=== PATIENT | female | born 2005 | race Caucasian/White ===

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

== ENCOUNTER 2024-02-12 08:59 | Outpatient (CLI) | payer MEDICAID, SELFPAY ==
--- NOTE | 2024-02-12 08:45 | RT.EKG_ITS ---
APPROVED REPORT Exam: Resting ECG Reason for Exam: Medication management/Use of stimulant medication Patient Location: O HR:69 bpm ECG Measurements Heart Rate 69 AXIS PA 136 P 21 QRSd 100 QRS 67 QT 389 T 28 QTc 417 Conclusion Sinus rhythm...normal P axis, V-rate 50- 99 Normal Electrocardiogram
== END 2024-02-12 09:00 | disposition home or self-care (01) ==
LOC: DI.KIM 09:00
PROVIDERS: PCP Nurse Practitioner Family; Visit Provider Nurse Practitioner Family
DX: Z79.899 Other long term (current) drug therapy (principal)
CPT/HCPCS: 93010

== ENCOUNTER 2024-03-25 10:54 | Outpatient (CLI) | payer MEDICAID, SELFPAY ==
[2024-03-25 11:04] LABS: HCT 44.1 % (36.0-46.0); HGB 14.3 g/dL (11.2-15.7); RBC 5.03 10^6/uL (3.93-5.22); WBC 7.08 10^3/uL (4.4-10.8)
[2024-03-25 11:05] LABS: MCH 28.4 pg (27.0-33.0); MCHC 32.4 % (32.0-36.0); MCV 88 fL (80-95); Platelet Count 324 10^3/uL (130-400); RDW 12.4 % (11.7-14.6); RDW-SD 39.6 fL
[2024-03-25 11:30] LABS: TSH (W/Ref FT4) 3.85 uIU/mL (0.36-3.74)
[2024-03-25 11:48] LABS: FREE T4 0.78 ng/dL (0.76-1.46)
== END 2024-03-25 10:55 | disposition home or self-care (01) ==
LOC: LBO 10:54
PROVIDERS: PCP Nurse Practitioner Family; Visit Provider Nurse Practitioner Family
DX: Z86.59 Personal history of other mental and behavioral disorders (principal); F41.9 Anxiety disorder, unspecified
CPT/HCPCS: 36415; 85027; 84439; 84443

== ENCOUNTER 2024-07-08 17:15 | Outpatient (CLI) | payer MEDICAID, SELFPAY ==
[2024-07-08 15:53] LABS: Hemoglobin A1C 5.1 % (<5.7)
[2024-07-08 17:01] LABS: ALT 32 U/L (14-59); AST 22 U/L (15-37); Alkaline Phosphatase 102 U/L (46-116); Anion Gap 10.9 mmol/L (3-11); BUN 9 mg/dL (7-18); Bilirubin, Total 0.36 mg/dL (0.2-1.0); CO2 27.1 mmol/L (21.0-32.0); Calcium 9.3 mg/dL (8.5-10.1); Calculated LDL 108 mg/dL (<100); Chloride 106 mmol/L (98-107); Cholesterol 176 mg/dL (<200); Estimated GFR 82.71 (mL/min/1.73m2); Glucose 90 mg/dL (74-106); HDL Cholesterol 53 mg/dL (>or=50); Potassium 4.2 mmol/L (3.5-5.1); Sodium 144 mmol/L (136-145); TSH 3.58 uIU/mL (0.36-3.74); Total Protein 7.6 g/dL (6.4-8.2); Triglyceride 77 mg/dL (<150); Vitamin D 25 Total 33.5 ng/mL (30-100)
[2024-07-09 17:37] LABS: T4, Free 0.9 ng/dL (0.8-2.2)
== END 2024-07-08 17:16 | disposition home or self-care (01) ==
LOC: LBO 17:17
PROVIDERS: PCP Nurse Practitioner Family; Visit Provider Registered Nurse
DX: F41.9 Anxiety disorder, unspecified (principal); F90.9 Attention-deficit hyperactivity disorder, unspecified type; F39 Unspecified mood [affective] disorder; F33.1 Major depressive disorder, recurrent, moderate; Z51.81 Encounter for therapeutic drug level monitoring
CPT/HCPCS: 36415; 80053; 80061; 82306; 83036; 84439; 84443

== ENCOUNTER 2024-08-06 08:45 | Outpatient (CLI) | payer MEDICAID, SELFPAY ==
--- NOTE | 2024-08-06 08:00 | DI.US_ITS ---
Exam(s) US SOFT TISS BUTTOCK/PERINEUM EXAM: US SOFT TISS BUTTOCK/PERINEUM CLINICAL HISTORY: eval pathology M79.18 MYALGIA LT BUTTOCK PAIN. TECHNIQUE: Ultrasound was performed using standard protocol. COMPARISON: No exams were available for comparison FINDINGS: Sonographic assessment utilizing grayscale and color Doppler imaging was performed and targeted to th e area of clinical concern. The area of concern on the left buttock was evaluated sonographically. There is mild edema seen in t he soft tissues. No focal fluid collection or soft tissue mass is seen. IMPRESSION: 1. Mild edema seen in the soft tissues. 2. No focal fluid collection is seen to suggest an abscess. No soft tissue masses present. DATA REPOSITORY:
== END 2024-08-06 09:05 ==
LOC: DI 08:45
PROVIDERS: PCP Nurse Practitioner Family; Visit Provider Nurse Practitioner Family
DX: M79.18 Myalgia, other site (principal)
CPT/HCPCS: 76857

== ENCOUNTER 2024-08-12 17:28 | Emergency (ER) | payer MEDICAID, SELFPAY ==
[2024-08-12] VITALS (21 sets, daily range): BP systolic 104–130; BP diastolic 53–79; PULSE 87–125; RESP 10–24; TEMP 37.8; O2SAT 95–100
[2024-08-12 18:15] LABS: Abs Immature Grans 0.16 10^3/uL (0.0-0.06); Basophils % 0.4 %; Eosinophils % 0.5 %; HCT 40.4 % (36.0-46.0); HGB 13.3 g/dL (11.2-15.7); Immature Grans % 0.8 %; Lactate 2.6 mmol/L (<or=2.0); Lymphocytes % 13.6 %; MCH 29.1 pg (27.0-33.0); MCHC 32.9 % (32.0-36.0); MCV 88 fL (80-95); MPV 10.1 fL (8.0-11.0); Neutrophils % 77.7 %; Platelet Count 425 10^3/uL (130-400); RBC 4.57 10^6/uL (3.93-5.22); RDW 12.4 % (11.7-14.6); RDW-SD 40.2 fL; WBC 19.67 10^3/uL (4.4-10.8)
[2024-08-12 18:27] LABS: Absolute Basophil Count 0.08 10^3/uL (0.0-0.2); Absolute Lymphocyte Count 2.68 10^3/uL (1.2-3.4); Absolute Monocyte Count 1.38 10^3/uL (0.1-0.8); Absolute Neutrophil Count 15.28 10^3/uL (1.2-6.7)
[2024-08-12 18:41] LABS: ALT 15 U/L (14-59); AST 13 U/L (15-37); Albumin 3.4 g/dL (3.4-5.0); Alkaline Phosphatase 109 U/L (46-116); Anion Gap 12.4 mmol/L (3-11); BUN 8 mg/dL (7-18); Bilirubin, Total 0.4 mg/dL (0.2-1.0); CO2 25.6 mmol/L (21.0-32.0); CREATININE 0.8 mg/dL (0.55-1.02); Calcium 9.7 mg/dL (8.5-10.1); Chloride 100 mmol/L (98-107); Estimated GFR 108.11 (mL/min/1.73m2); Glucose 106 mg/dL (74-106); Potassium 3.8 mmol/L (3.5-5.1); Sodium 138 mmol/L (136-145); Total Protein 7.5 g/dL (6.4-8.2)
[2024-08-12 18:52] LABS: Procalcitonin < 0.10 ng/mL
[2024-08-12] MEDS: Lactated Ringers 1,000 ML 1000 ML IV (18:54)
[2024-08-12] MEDS: ACETAMINOPHEN 1,000 MG/100 ML BAG 400 MG IVPB (18:55)
--- NOTE | 2024-08-12 19:00 | ED.GENADUL_ITS ---
Discharge Plan Disposition Patient Disposition: Home Condition: Good Discharge Details Clinical Impression: Abscess of buttock, left Primary Care Provider: Lisandra Garvey ED Provider: Kenny Emanuel Home Meds and New Rx's Prescriptions: New clindamycin HCl 150 mg capsule 450 mg PO Q6H 7 Days Qty: 84 0RF Discontinued doxycycline hyclate 100 mg capsule 100 mg PO BID Qty: 14 0RF Rx Instructions: Avoid sun exposure. Take with meal. Take 1 pill every 12 hours x 7 days cephalexin 500 mg capsule 500 mg PO Q8H Patient Comments: TAKE ONE CAPSULE BY MOUTH FOUR TIMES A DAY FOR 7 DAYS No Action duloxetine 60 mg capsule,delayed release(DR/EC) 60 mg PO DAILY duloxetine 30 mg capsule,delayed release(DR/EC) 30 mg PO DAILY lisdexamfetamine [Vyvanse] 50 mg capsule 50 mg PO DAILY lamotrigine 100 mg tablet 100 mg PO DAILY Mirena 21 mcg/24 hours (8 yrs) 52 mg intrauterine device 1 device intrauterine ONCE Qty: 1 0RF Rx Instructions: as a single dose quetiapine [Seroquel] 25 mg tablet 25 mg PO QHS Qty: 60 2RF Rx Instructions: Take 1-2 tab by mouth at bedtime for insomnia prenat.vits,polly,[id number] Tablet 1 tab PO DAILY Qty: 60 3RF magnesium gluconate 27.5 mg magne- sium (500 mg) tablet 27.5 mg PO DAILY Qty: 30 3RF Discharge Instructions Instructions: Abscess Incision and Drainage ED Additional Instructions: At this time your abscess has been incised and drained. Please take the clindamycin every 6 hours. A prescription has been sent to your pharmacy. Please take your next dose in 5 hours from now. Please drink plenty fluids and stay well-hydrated. Do not soak the wound. Try to keep it dry. Please follow- up closely in the next 48 to 72 hours for reassessment of the wound, as well as potential changing of the packing. Please take Tylenol and Motrin as needed for pain. Please take a probiotic to help reduce the likelihood of potential diarrhea. As we discussed together, if your symptoms do worsen at all please return immediately as this may necessitate need for potential admission. If you notice any worsening of your symptoms, or any new symptoms such as vomiting, diarrhea, fever, chills, shortness of breath, chest pain, numbness, weakness, or fainting , please return immediately to the emergency department for reevaluation. Please follow up with your primary care provider as soon as possible for reassessment and reevaluation. As always, it was a pleasure participating in your medical care today. Referrals: Lisandra Garvey APRN [Primary Care Provider] - [facility] General Date/Time Provider Initiated Documentation: 08/12/24 17:37 . HPI Narrative: This is a very pleasant 18-year-old female with a past medical history of PCOS, ADHD, BMI of 43, who presents today for worsening cellulitis. Patient states that about 1 week ago she developed cellulitis and an infection on her left buttock, she was prescribed doxycycline and Keflex appropriately, and has been taking that for the last 6 days. She has developed a mild fever over the last day or so, and some continued pain. Redness has been swelling as has the pain. She denies left diarrhea but does admit to a single episode of vomiting today. She is not a diabetic. No other complaints at this time. No other modifying factors. Pain is made worse with palpation. Improved by nothing. Related Data Home Medications ?Medication ?Instructions ?Recorded ?Confirmed levonorgestrel 21 mcg/24 hr (up to 1 device intrauterine ONCE #1 ea 12/07/22 08/12/24 8 years) 52 mg intrauterine device (Mirena) magnesium gluconate 27.5 mg 27.5 mg PO DAILY #30 tabs 09/18/23 08/12/24 magnesium (500 mg) tablet prenat.vits,polly,dzx-inrq-juckn 1 tab PO DAILY #60 tabs 09/18/23 08/12/24 quetiapine 25 mg tablet (Seroquel) 25 mg PO QHS #60 tabs 09/18/23 08/12/24 duloxetine 30 mg capsule,delayed 30 mg PO DAILY 07/29/24 08/12/24 release duloxetine 60 mg capsule,delayed 60 mg PO DAILY 07/29/24 08/12/24 release lamotrigine 100 mg tablet 100 mg PO DAILY 07/29/24 08/12/24 lisdexamfetamine 50 mg capsule 50 mg PO DAILY 07/29/24 08/12/24 (Vyvanse) clindamycin HCl 150 mg capsule 450 mg (3 x 150 mg) PO Q6H 7 days 08/12/24 #84 caps Previous Rx's ?Medication ?Instructions ?Recorded levonorgestrel 21 mcg/24 hr (up to 1 device intrauterine ONCE #1 ea 12/07/22 8 years) 52 mg intrauterine device (Mirena) magnesium gluconate 27.5 mg 27.5 mg PO DAILY #30 tabs 09/18/23 magnesium (500 mg) tablet prenat.vits,polly,iyg-scjf-coyjc 1 tab PO DAILY #60 tabs 09/18/23 quetiapine 25 mg tablet (Seroquel) 25 mg PO QHS #60 tabs 09/18/23 clindamycin HCl 150 mg capsule 450 mg (3 x 150 mg) PO Q6H 7 days 08/12/24 #84 caps Allergies Allergy/AdvReac Type Severity Reaction Status Date / Time No Known Drug Allergies Allergy Other (See Unverified 08/05/24 17:18 Comment) banana AdvReac Intermediate Other (See Verified 08/05/24 17:18 Comment) pineapple AdvReac Intermediate Other (See Verified 08/05/24 17:18 Comment) General Stated Complaint: Cellulitis ALLISON: 3 Exam Narrative Exam Narrative: 1.Const: Well-nourished, Well-developed, appearing stated age 2.Eyes: PERRL, no conjunctival injection, and symmetrical lids. 3.ENT: Atraumatic external nose and ears. Moist MM. Neck: Symmetric, trachea midline, No thyromegaly. 4.CVS: +S1/S2, Peripheral pulses 2+ and equal in all extremities. Brisk capillary refill in all extremities. 5.RESP: Unlabored respiratory effort. Clear to auscultation bilaterally. No wheezes rales or rhonchi 6.GI: Soft, Nontender/Nondistended, No hepatosplenomegaly. No guarding or rebound. 7.MSK: Normocephalic/Atraumatic, Extremities w/o deformity or ttp No cyanosis or clubbing, Normal movement of all extremities 8.Skin: Patient's left buttock demonstrates a large 13 cm area of erythema and induration. No crepitus to suggest gas. Notable warmth in this area. Notably firm, with no focal fluctuance. 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 Sensation grossly intact, no focal neurologic deficits. 10.Psych: (AAO) x3. Appropriate mood and affect Course Vital Signs Vital signs: Vital Signs Temperature 37.8 C H 08/12/24 17:31 Pulse 125 H 08/12/24 17:31 Respiratory Rate 18 08/12/24 17:31 Blood Pressure 104/71 08/12/24 17:31 Pulse Oximetry 97 08/12/24 17:31 Temperature 37.8 C H 08/12/24 17:44 Pulse 125 H 08/12/24 17:44 Respiratory Rate 18 08/12/24 17:44 Blood Pressure 104/71 08/12/24 17:44 Blood Pressure Position Sitting 08/12/24 17:44 Pulse Oximetry 97 08/12/24 17:44 Oxygen Delivery Method Room Air 08/12/24 17:44 Oxygen Flow Rate 0 08/12/24 17:44 Pain Level 9 08/12/24 17:44 Lab/Test Results Lab/Test Results: 08/12/24 18:52 Buttock - Left Wound Culture - Pending 08/12/24 18:52 Buttock - Left Gram Stain - Pending 08/12/24 18:05 Blood Blood Culture - Pending 08/12/24 17:59 Blood Blood Culture - Pending Laboratory Tests Range/Units 08/12/24 18:05 WBC (4.4-10.8) 10^3/uL 19.67 H RBC (3.93-5.22) 10^6/uL 4.57 Hgb (11.2-15.7) g/dL 13.3 Hct (36.0-46.0) % 40.4 MCV (80-95) fL 88 MCH (27.0-33.0) pg 29.1 MCHC (32.0-36.0) % 32.9 RDW (11.7-14.6) % 12.4 Plt Count (130-400) 10^3/uL 425 H MPV (8.0-11.0) fL 10.1 Immature Gran % % 0.8 Neutrophils % % 77.7 Lymphocytes % % 13.6 Monocytes % % 7.0 Eosinophils % % 0.5 Basophils % % 0.4 Nucleated RBC % (0.0-0.3) % 0.0 Absolute Neutrophils (1.2-6.7) 10^3/uL 15.28 H Absolute Lymphocytes (1.2-3.4) 10^3/uL 2.68 Absolute Monocytes (0.1-0.8) 10^3/uL 1.38 H Absolute Eosinophils (0.0-0.7) 10^3/uL 0.10 Absolute Basophils (0.0-0.2) 10^3/uL 0.08 VBG Lactate (<or=2.0) mmol/L 2.6 H* Sodium (136-145) mmol/L 138 Potassium (3.5-5.1) mmol/L 3.8 Chloride (98-107) mmol/L 100 Carbon Dioxide (21.0-32.0) mmol/L 25.6 Anion Gap (3-11) mmol/L 12.4 H BUN (7-18) mg/dL 8 Creatinine (0.55-1.02) mg/dL 0.8 Est GFR (CKD-EPI 2020) (mL/min/1.73m2) 108.11 Glucose (74-106) mg/dL 106 Calcium (8.5-10.1) mg/dL 9.7 Total Bilirubin (0.2-1.0) mg/dL 0.4 AST (15-37) U/L 13 L ALT (14-59) U/L 15 Alkaline Phosphatase (46-116) U/L 109 Total Protein (6.4-8.2) g/dL 7.5 Albumin (3.4-5.0) g/dL 3.4 Procalcitonin ng/mL < 0.10 Procedure Abscess Drainage Date of Procedure: 08/12/24 Time of Procedure: 19:09 Provider that performed the procedure: Kenny Aj Time Out Performed: No Patient Consented: Verbally Location of Exam: Buttocks/left side Indication: Abscess. Local anesthetic: Local Anesthetic: Lidocaine 2% and with epi, Amount of Local Anesthetic Used (mL): 15. Sterility: Sterile. Procedure Prep: Hand hygiene, Surgical Mask, Sterile Gloves, Sterile Gown and Chlohexidine. Technique used, incised with blade and needle aspiration (18 gauge). Amount of fluid expressed(mL): 60. Irrigation: irrigation used. Amount of irrigation used(mL): 20. Packing: Iodoform. Outcome: Sucessful. Ultrasound: Used/Image Saved Complications: None Medical Decision Making This is a very pleasant 18-year-old female with a past medical history of PCOS, ADHD, BMI of 43, who presents today for worsening cellulitis. Patient states that about 1 week ago she developed cellulitis and an infection on her left buttock, she was prescribed doxycycline and Keflex appropriately, and has been taking that for the last 6 days. She has developed a mild fever over the last day or so, and some continued pain. Redness has been swelling as has the pain. She denies left diarrhea but does admit to a single episode of vomiting today. She is not a diabetic. No other complaints at this time. No other modifying factors. Pain is made worse with palpation. Improved by nothing. Patient physical exam shows evidence of a large abscess on the left buttock. Ultrasound shows notable cobblestoning and some fluid. No focal pocket though. Area was anesthetized with lidocaine with epinephrine, and an 18-gauge syringe was used to draw out fluid. 20 cc of fluid was drawn out without complication. Patient tolerated this well. Because of all that fluid we then elected to do an incisional drainage. Incision was made, and an additional 40+ cc were removed. Patient tolerated this well. Notably purulent nature. Patient feels much better. The abscess was then washed out and then packed with iodoform gauze. We will give clindamycin IV, monitor closely and reassess. No subcutaneous gaseous components to suggest necrotizing fasciitis. Pus was what removed, and not dishwater like solution. Concern for sepsis. We will rehydrate, treat with antibiotics monitor closely and reassess. 9:01 PM On reassessment patient is feeling much better. She received 2 L of IV fluids, heart rate went from the 120s to the low 90s. Blood pressure remained stable with no hypotension or evidence of shock. Patient feels exceedingly better, initial white count was 19, repeat is now 17, initial lactate was 2.6, current lactate is 0.8. Renal function is stable. Procalcitonin less than 0.1. Patient feels notably well. She received IV clindamycin and tolerated this well. With a notable improvement of her labs, stability of her vital signs, we did discuss continued observation/admission versus discharge. Weighing the risks and benefits patient has elected to go home at this time, however we had a long conversation in regard to this as potential for worsening of her symptoms although this is unlikely. She understands this and will come back promptly if she has any worsening whatsoever. She will follow-up closely with her primary care provider for reassessment within the next few days. She will likely need multiple wound checks and potential repacking of the wound as it heals. Will give the patient a dose of oral clindamycin to go, she already received a full dose of IV clindamycin. Will give prescription for home use, recommend probiotic to help reduce likelihood of diarrhea. At this time patient shows no evidence of septic shock, necrotizing fasciitis, gangrene, or hemodynamic instability. Patient will be discharged home. Discussed red flags for which to return as well as indications for prompt return. I have extensively reviewed the treatment plan and discharge instructions with the patient and their family. I have addressed all patient concerns at this time. The patient and family was m kiersten aware of what symptoms to monitor for that would warrant a return to the emergency department. Discussed the plan with the patient and family, they demonstrate verbal understanding and agreement with our assessment and plan at this time. The documentation in this chart was dictated using [facility] dictation software. Please excuse any dictation errors. Quality:SDOH Health Related Social Needs: No Data to Display Critical Care Time Critical Care Time Critical Care Time: Yes Total Critical Care Time: 30 Attestation: Upon my evaluation, this patient had a high probability of imminent or life- threatening deterioration, which required my direct attention, intervention, and personal management. I have personally provided 30 minutes of critical care time exclusive of time spent on separately billable procedures. Time includes review of laboratory data, radiology results, discussion with consultants, and monitoring for potential decompensation. Interventions were performed as documented. [facility] All Active Problems (Updated 08/12/24 @ 21:04 by Kenny Emanuel DO) Abscess of buttock, left (Acute) Mood disorder (Acute) History of depression (Acute) Insomnia (Chronic) Restless leg (Chronic) Dysmenorrhea (Chronic) doing well on OCP Fatty liver (Chronic) Pre US 07/2021: early onset fatty liver disease Food allergy (Chronic) Banana and Pineapple- vomiting Anxiety (Chronic) reportedly generalized and social anxiety; mixed with depression ADHD (attention deficit hyperactivity disorder), combined type (Chronic) palpitations with Concerta and Focalin XR; tolerating Vyvanse Dry scalp (Acute) PCOS (polycystic ovarian syndrome) (Chronic) Ongoing concern- being followed by weight/wellness clinic and endo clinic at [facility]; Hx of acanthosis nigricans, obesity, dysmenorrhea, hirsutism; sleep study December 2021; referral placed to adult weight and wellness 10/2022 Medical History Nausea Family History Mother Mental disorder depression Asthma Other Diabetes mat great aunt Personal history of malignant neoplasm MGGF-lung Alzheimer disease pat great GF Hyperlipidemia MGF, mat uncle Mental disorder MGF-depression Myocardial infarction mat great GF Hepatitis C PGM Father Hyperlipidemia Social History Smoking/Tobacco Use Status: Never Second Hand Exposure: Yes (Parents, outside only) Smoking risk assessment performed?: Yes Alcohol Intake: never Drug use: Never Substance use type: does not use Adopted: No Caregiver/Support person: No Foster care: No Household members: family Housing: house Number of Children: 0 number of grandchildren: 0 Communication Needs: Corrective Lenses Education Level: college Details: 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 current occupation: [employer] in [place] Pets and animals: Yes (1 cat, 2 dogs) Pets and animals: cat(s) and dog(s) Do you think of yourself as: lesbian/trevino/homosexual Current gender identity: neither exclusively male nor female What type of physical activity do you participate in: regular exercise Duration: 30-45 minutes/day Frequency: 3-4 times per week Seatbelt use: always Helmet use: Yes Drive intox or ride w/intox 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 Fire extinguisher in home: Yes Carbon monox detector in home: Yes Firearms in home: No History History 0 Para Hx # Term Pregnancies Multiple births Hx # Pregnancies Ectopic pregnancies AB induced Hx Number of Living Children AB spontaneous POCUS Exam (ED) Limited Soft Tissue Exam DATE OF EXAM: 08/12/24 TIME OF EXAM: 19:17 PROVIDER THAT PERFORMED THE STUDY: Kenny Emanuel IS THIS A REPEAT EXAM DURING THIS ENCOUNTER: No LOCATION OF EXAM: Buttocks/left side REASON FOR EXAM: Abscess VISUALIZED STRUCTURES: Fascia, Skin and Subcutaneous tissue PERTINENT FINDINGS/IMPRESSION: Abscess (Cobblestoning and fluid) left buttock . Exam Complete
[2024-08-12] MEDS: CLINDAMYCIN 600 MG/50 ML BAG 100 MG IVPB (19:35)
[2024-08-12] MEDS: Normal Saline 1,000 ML 1000 ML IV (19:35)
[2024-08-12 20:18] LABS: HCT 35.6 % (36.0-46.0); HGB 11.8 g/dL (11.2-15.7); Lactate 0.8 mmol/L (<or=2.0); MCH 29.2 pg (27.0-33.0); MCHC 33.1 % (32.0-36.0); MCV 88 fL (80-95); MPV 9.8 fL (8.0-11.0); Platelet Count 371 10^3/uL (130-400); RBC 4.04 10^6/uL (3.93-5.22); RDW 12.3 % (11.7-14.6); RDW-SD 40.5 fL; WBC 17.53 10^3/uL (4.4-10.8)
[2024-08-12] MEDS: Clindamycin 150 MG CAP, 12 CAPS/BTL 450 MG PO ×2 (21:04→21:30)
--- NOTE | 2024-08-13 14:00 | NUR.NOTE ---
Accessed Pt chart to see if Pt was prescribed antibiotics due to a positive specimen result. I shared the name of the meds given to PT to Dr Emanuel
--- NOTE | 2024-08-13 14:40 | W.ED.FU ---
Date of service: 08/13/24 Time of Service: 14:40 Follow Up Plan: Patient's blood cultures did return positive. I did contact the patient. She states that she is feeling much better. She has no fever or chills, her heart rate is now in the 70s. Even though she is feeling much better I still did discuss with her the concern with the positive blood cultures. I discussed our formal recommendations for return for inpatient admission for IV antibiotics for 24 hours. Patient understands this. She will discuss this further with her mother and likely come in shortly.
== END 2024-08-12 21:42 | disposition home or self-care (01) ==
PROVIDERS: Emergency Provider Student in an Organized Health Care Education/Training Program; PCP Nurse Practitioner Family
DX: L02.31 Cutaneous abscess of buttock (principal); R50.9 Fever, unspecified
CPT/HCPCS: 10061; 36415; 76857; 76942; 80053; 84145; 85027; 87040; 87077; 96365; 96367; 99291; 83605; 85025; 87070; 87186; 87205; J0131; J0737; J2004

== ENCOUNTER 2024-08-13 15:34 | Inpatient (IN) | payer MEDICAID, SELFPAY ==
[2024-08-13 15:38] VITALS: BP 108/61; PULSE 102; RESP 20; TEMP 36.7; O2SAT 96
[2024-08-13 15:56] LABS: Lactate 1.4 mmol/L (<or=2.0)
[2024-08-13 15:57] LABS: Abs Immature Grans 0.19 10^3/uL (0.0-0.06); Absolute Basophil Count 0.07 10^3/uL (0.0-0.2); Absolute Lymphocyte Count 3.11 10^3/uL (1.2-3.4); Absolute Monocyte Count 0.88 10^3/uL (0.1-0.8); Absolute Neutrophil Count 9.13 10^3/uL (1.2-6.7); Basophils % 0.5 %; HCT 41.6 % (36.0-46.0); HGB 13.5 g/dL (11.2-15.7); Immature Grans % 1.4 %; MCH 28.8 pg (27.0-33.0); MCHC 32.5 % (32.0-36.0); MCV 89 fL (80-95); MPV 9.9 fL (8.0-11.0); Monocytes % 6.5 %; Neutrophils % 67.6 %; Platelet Count 440 10^3/uL (130-400); RBC 4.69 10^6/uL (3.93-5.22); RDW 12.5 % (11.7-14.6); RDW-SD 40.8 fL; WBC 13.51 10^3/uL (4.4-10.8)
[2024-08-13 16:00] LABS: Absolute Eosinophil Count 0.14 10^3/uL (0.0-0.7)
[2024-08-13 16:13] LABS: ALT 19 U/L (14-59); AST 10 U/L (15-37); Albumin 3.3 g/dL (3.4-5.0); Alkaline Phosphatase 104 U/L (46-116); BUN 9 mg/dL (7-18); Bilirubin, Total 0.2 mg/dL (0.2-1.0); CREATININE 0.9 mg/dL (0.55-1.02); Calcium 9.6 mg/dL (8.5-10.1); Chloride 104 mmol/L (98-107); Estimated GFR 93.86 (mL/min/1.73m2); Glucose 92 mg/dL (74-106); Potassium 4.2 mmol/L (3.5-5.1); Sodium 141 mmol/L (136-145); Total Protein 7.4 g/dL (6.4-8.2)
--- NOTE | 2024-08-13 16:16 | HPE_ITS ---
Date of service: 08/13/24 Time of Service: 16:16 Assessment and Plan Assessment and plan (1) Gram-positive cocci bacteremia: Status: Acute Assessment and plan: As per Blood Cx from 08/12 Repeat blood Cx IV vancomycin CBC and BMP in AM (2) Abscess of buttock, left: Status: Acute Assessment and plan: Wound dressing BID ordered Wound Cx growing GPC and GNR Ceftriaxone IV and oral metronidazole (3) ADHD (attention deficit hyperactivity disorder), combined type: Status: Chronic Assessment and plan: Continue home vyvanse (4) History of depression: Status: Acute Assessment and plan: On home duloxetine dose (5) Mood disorder: Status: Acute Assessment and plan: On home lamictal (6) Hypothyroidism: Status: Chronic Assessment and plan: On home levothyroxine dose - forgets to take at times, last filled 07/11/24, TSH 3.58 and T4 0.9 on 07/08/24 (7) Insomnia: Status: Chronic Assessment and plan: On home dose of seroquel (8) On deep vein thrombosis (DVT) prophylaxis: Status: Acute Assessment and plan: On lovenox Discussed with Dr. Clemente History of Present Illness History of Present Illness Chief Complaint: Gram positive bacteremia N arrative: This 18 years old female patient with a past medical history of PCOS, ADHD, morbid obesity was called back to the ED today due to blood cultures completed on 08/12/24 growing gram positive cocci. On the 08/12/24 the patient was seen and her left buttock abscess/ boil was lanced, drained, and dressed s/p packing insertion. She was discharged on clindamycin; previously she was on Doxycycline and cephalexin for about 6 days with worsening pain, swelling, redness to the left buttock; also reported fevers , chills , nausea and vomiting. Reporting improvement of symptoms after her ED visit yesterday.. Improving leukocytosis with WBC at 13.5 from 17.5. The patient will be admitted to the medical floor by the hospitalist team for Gram positive bacteremia, left buttock cellulitis.The patient confirmed full code status; denied has an IUD. Review of Systems All systems reviewed & are unremarkable except as noted in HPI and below PFSH All Active Problems (Updated 08/13/24 @ 17:24 by Mary Alessandra, PRESSURIZATION MECHANIC) On deep vein thrombosis (DVT) prophylaxis (Acute) Hypothyroidism (Chronic) Gram-positive cocci bacteremia (Acute) Gram-positive bacteremia (Acute) Bacteremia (Acute) Abscess of buttock, left (Acute) Mood disorder (Acute) History of depression (Acute) Insomnia (Chronic) Restless leg (Chronic) Dysmenorrhea (Chronic) doing well on OCP Fatty liver (Chronic) Pre US 07/2021: early onset fatty liver disease Food allergy (Chronic) Banana and Pineapple- vomiting Anxiety (Chronic) reportedly generalized and social anxiety; mixed with depression ADHD (attention deficit hyperactivity disorder), combined type (Chronic) palpitations with Concerta and Focalin XR; tolerating Vyvanse Dry scalp (Acute) PCOS (polycystic ovarian syndrome) (Chronic) Ongoing concern- being followed by weight/wellness clinic and endo clinic at [facility] [place]; Hx of acanthosis nigricans, obesity, dysmenorrhea, hirsutism; sleep study December 2021; referral placed to adult weight and wellness 10/2022 Medical History Nausea Family History Mother Mental disorder depression Asthma Other Diabetes mat great aunt Personal history of malignant neoplasm MGGF-lung Alzheimer disease pat great GF Hyperlipidemia MGF, mat uncle Mental disorder MGF-depression Myocardial infarction mat great GF Hepatitis C PGM Father Hyperlipidemia Social History Smoking/Tobacco Use Status: Never Second Hand Exposure: Yes (Parents, outside only) Smoking risk assessment performed?: Yes Alcohol Intake: never Drug use: Never Substance use type: does not use Adopted: No Caregiver/Support person: No Foster care: No Household members: family Housing: house Number of Children: 0 number of grandchildren: 0 Communication Needs: Corrective Lenses Education Level: college 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 current occupation: [employer] in [place] Pets and animals: Yes (1 cat, 2 dogs) Pets and animals: cat(s) and dog(s) Do you think of yourself as: lesbian/trevino/homosexual Current gender identity: neither exclusively male nor female What type of physical activity do you participate in: regular exercise Duration: 30-45 minutes/day Frequency: 3-4 times per week Seatbelt use: always Helmet use: Yes Drive 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Instructions ?Recorded ?Confirmed ?Type levonorgestrel 21 mcg/24 hr (up to 1 device intrauterine ONCE #1 ea 12/07/22 08/13/24 Rx 8 years) 52 mg intrauterine device (Mirena) magnesium gluconate 27.5 mg 27.5 mg PO DAILY #30 tabs 09/18/23 08/13/24 Rx magnesium (500 mg) tablet prenat.vits,polly,qcy-[id number]-[id number] 1 tab PO DAILY #60 tabs 09/18/23 08/13/24 Rx quetiapine 25 mg tablet (Seroquel) 25 mg PO QHS #60 tabs 09/18/23 08/13/24 Rx duloxetine 30 mg capsule,delayed 30 mg PO DAILY 07/29/24 08/13/24 History release duloxetine 60 mg capsule,delayed 60 mg PO DAILY 07/29/24 08/13/24 History release lamotrigine 100 mg tablet 100 mg PO DAILY 07/29/24 08/13/24 History lisdexamfetamine 50 mg capsule 50 mg PO DAILY 07/29/24 08/13/24 History (Vyvanse) clindamycin HCl 150 mg capsule 450 mg (3 x 150 mg) PO Q6H 7 days 08/12/24 08/13/24 Rx #84 caps Exam Narrative Exam Narrative: Morbidly obese 18-year-old female appearing of stated age without acute distress, alert oriented x 4 without focal deficit, moves all 4 extremities. Heart is regular S1-S2 no cardiac murmur Unlabored breathing, clear breath sounds bilaterally to auscultation Abdomen is round, nondistended, soft, nontender No CVA tenderness Lower left buttock with localized erythema, warmth and edema. Incision site with packing protruding showed copious purulent drainage. Results Labs 08/13/24 15:52 08/13/24 15:52 Labs: Laboratory Results - last 24 hr 08/13/24 15:52 WBC 13.51 H RBC 4.69 Hgb 13.5 Hct 41.6 MCV 89 MCH 28.8 MCHC 32.5 RDW 12.5 Plt Count 440 H MPV 9.9 Immature Gran % 1.4 Neutrophils % 67.6 Lymphocytes % 23.0 Monocytes % 6.5 Eosinophils % 1.0 Basophils % 0.5 Nucleated RBC % 0.0 Absolute Neutrophils 9.13 H Absolute Lymphocytes 3.11 Absolute Monocytes 0.88 H Absolute Eosinophils 0.14 Absolute Basophils 0.07 VBG Lactate 1.4 Sodium 141 Potassium 4.2 Chloride 104 Carbon Dioxide 30.0 Anion Gap 7.0 BUN 9 Creatinine 0.9 Est GFR (CKD-EPI 2020) 93.86 Glucose 92 Calcium 9.6 Total Bilirubin 0.2 AST 10 L ALT 19 Alkaline Phosphatase 104 Total Protein 7.4 Albumin 3.3 L Last Vital Signs Temp 36.7 C 08/13/24 15:38 Pulse 102 H 08/13/24 15:38 Resp 20 08/13/24 15:38 BP 108/61 08/13/24 15:38 Pulse Ox 96 08/13/24 15:38 Time Spent Time spent with Patient: >75 minutes Time was spent: preparing to see the patient(eg.review tests), obtaining and/or reviewing separately otained hiistory, ordering medications,tests, procedures, referring, communicating with other health skin care technician, indepentently interpreting results, counseling the patient and care coordination
--- NOTE | 2024-08-13 16:26 | ED.GENADUL_ITS ---
Discharge Plan Disposition Patient Disposition: Admit to [facility] Condition: Good Discharge Details Clinical Impression: Bacteremia, Abscess of buttock, left Admit Date/Time: 08/13/24 17:09 Admit Provider: Gregg Clemente Attending Provider: Gregg Clemente Primary Care Provider: Lisandra Garvey ED Provider: Kenny Emanuel HPI General Date/Time Provider Initiated Documentation: 08/13/24 15:37 . HPI Narrative: This is a pleasant 18-year-old female with a past medical history of PCOS, ADHD, BMI of 43, who was seen and assessed here yesterday for abscess on her left buttock. She had been on Keflex and doxycycline for 6 days without any improvement. When she arrived she had a large abscess that had between 40 and 60 cc of pus removed. She initially had a high white count and an elevated lactate, however after IV clindamycin, fluid rehydration, and drainage of the abscess she felt much better, heart rate normalized to the 70s, lactate resolved, and white count improved. We had a long decision at that time about risks and benefits of admission versus discharge. And at that time through shared decision making process patient elected to go home with close monitoring both her blood cultures and her symptomatology for potential prompt return. On callback this afternoon I contacted the patient she states she was feeling much better. Heart rate had improved significantly, she had had no repeat fevers, and she was clinically feeling much better. However blood cultures did return positive for gram-positive cocci. We did recommend that she come back into the ED for further assessment. She presents now. Clinically she states she feels much better, but she states she is willing to be admitted secondary to the positive blood cultures. She has no other complaints at this time. She has been taking the clindamycin 450 mg every 6 hours as prescribed. She did get an IV dose of clinda last night, has been taking oral meds since then. Related Data Home Medications ?Medication ?Instructions ?Recorded ?Confirmed levonorgestrel 21 mcg/24 hr (up to 1 device intrauterine ONCE #1 ea 12/07/22 08/13/24 8 years) 52 mg intrauterine device (Mirena) magnesium gluconate 27.5 mg 27.5 mg PO DAILY #30 tabs 09/18/23 08/13/24 magnesium (500 mg) tablet prenat.vits,polly,uzb-imlu-[id number] 1 tab PO DAILY #60 tabs 09/18/23 08/13/24 quetiapine 25 mg tablet (Seroquel) 25 mg PO QHS #60 tabs 09/18/23 08/13/24 duloxetine 30 mg capsule,delayed 30 mg PO DAILY 07/29/24 08/13/24 release duloxetine 60 mg capsule,delayed 60 mg PO DAILY 07/29/24 08/13/24 release lamotrigine 100 mg tablet 100 mg PO DAILY 07/29/24 08/13/24 lisdexamfetamine 50 mg capsule 50 mg PO DAILY 07/29/24 08/13/24 (Vyvanse) clindamycin HCl 150 mg capsule 450 mg (3 x 150 mg) PO Q6H 7 days 08/12/24 08/13/24 #84 caps Previous Rx's ?Medication ?Instructions ?Recorded levonorgestrel 21 mcg/24 hr (up to 1 device intrauterine ONCE #1 ea 12/07/22 8 years) 52 mg intrauterine device (Mirena) magnesium gluconate 27.5 mg 27.5 mg PO DAILY #30 tabs 09/18/23 magnesium (500 mg) tablet prenat.vits,polly,eus-aaxs-bbwfp 1 tab PO DAILY #60 tabs 09/18/23 quetiapine 25 mg tablet (Seroquel) 25 mg PO QHS #60 tabs 09/18/23 clindamycin HCl 150 mg capsule 450 mg (3 x 150 mg) PO Q6H 7 days 08/12/24 #84 caps Allergies Allergy/AdvReac Type Severity Reaction Status Date / Time No Known Drug Allergies Allergy Other (See Verified 08/13/24 15:37 Comment) banana AdvReac Intermediate Other (See Verified 08/13/24 15:37 Comment) pineapple AdvReac Intermediate Other (See Verified 08/13/24 15:37 Comment) General Stated Complaint: Recheck ALLISON: 3 Exam Narrative Exam Narrative: 1.Const: Well-nourished, Well-developed, appearing stated age 2.Eyes: PERRL, no conjunctival injection, and symmetrical lids. 3.ENT: Atraumatic external nose and ears. Moist MM. Neck: Symmetric, trachea midline, No thyromegaly. 4.CVS: +S1/S2, Peripheral pulses 2+ and equal in all extremities. Brisk capillary refill in all extremities. 5.RESP: Unlabored respiratory effort. Clear to auscultation bilaterally. No wheezes rales or rhonchi 6.GI: Soft, Nontender/Nondistended, No hepatosplenomegaly. No guarding or rebound. 7.MSK: Normocephalic/Atraumatic, Extremities w/o deformity or ttp No cyanosis or clubbing, Normal movement of all extremities 8.Skin: Warm, Dry. Right buttock abscess continues to have packing in place, still draining a small amount of serous fluid. Redness is notably improved, tenderness is notably diminished. No subcutaneous crepitus. No spreading redness. No pain out of proportion. 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 Sensation grossly intact, no focal neurologic deficits. 10.Psych: (AAO) x3. Appropriate mood and affect Course Vital Signs Vital signs: Vital Signs Temperature 36.7 C 08/13/24 15:38 Pulse 102 H 08/13/24 15:38 Respiratory Rate 20 08/13/24 15:38 Blood Pressure 108/61 08/13/24 15:38 Pulse Oximetry 96 08/13/24 15:38 Temperature 36.7 C 08/13/24 15:38 Temperature Source Oral 08/13/24 15:38 Pulse 102 H 08/13/24 15:38 Respiratory Rate 20 08/13/24 15:38 Blood Pressure 108/61 08/13/24 15:38 Blood Pressure Position Sitting 08/13/24 15:38 Pulse Oximetry 96 08/13/24 15:38 Oxygen Delivery Method Room Air 08/13/24 15:38 Oxygen Flow Rate 0 08/13/24 15:38 Pain Level 6 08/13/24 15:38 Lab/Test Results Lab/Test Results: 08/13/24 16:22 Blood Blood Culture - Pending 08/13/24 16:17 Blood Blood Culture - Pending Laboratory Tests Range/Units 08/13/24 15:52 WBC (4.4-10.8) 10^3/uL 13.51 H RBC (3.93-5.22) 10^6/uL 4.69 Hgb (11.2-15.7) g/dL 13.5 Hct (36.0-46.0) % 41.6 MCV (80-95) fL 89 MCH (27.0-33.0) pg 28.8 MCHC (32.0-36.0) % 32.5 RDW (11.7-14.6) % 12.5 Plt Count (130-400) 10^3/uL 440 H MPV (8.0-11.0) fL 9.9 Immature Gran % % 1.4 Neutrophils % % 67.6 Lymphocytes % % 23.0 Monocytes % % 6.5 Eosinophils % % 1.0 Basophils % % 0.5 Nucleated RBC % (0.0-0.3) % 0.0 Absolute Neutrophils (1.2-6.7) 10^3/uL 9.13 H Absolute Lymphocytes (1.2-3.4) 10^3/uL 3.11 Absolute Monocytes (0.1-0.8) 10^3/uL 0.88 H Absolute Eosinophils (0.0-0.7) 10^3/uL 0.14 Absolute Basophils (0.0-0.2) 10^3/uL 0.07 VBG Lactate (<or=2.0) mmol/L 1.4 Sodium (136-145) mmol/L 141 Potassium (3.5-5.1) mmol/L 4.2 Chloride (98-107) mmol/L 104 Carbon Dioxide (21.0-32.0) mmol/L 30.0 Anion Gap (3-11) mmol/L 7.0 BUN (7-18) mg/dL 9 Creatinine (0.55-1.02) mg/dL 0.9 Est GFR (CKD-EPI 2020) (mL/min/1.73m2) 93.86 Glucose (74-106) mg/dL 92 Calcium (8.5-10.1) mg/dL 9.6 Total Bilirubin (0.2-1.0) mg/dL 0.2 AST (15-37) U/L 10 L ALT (14-59) U/L 19 Alkaline Phosphatase (46-116) U/L 104 Total Protein (6.4-8.2) g/dL 7.4 Albumin (3.4-5.0) g/dL 3.3 L Medical Decision Making This is a pleasant 18-year-old female with a past medical history of PCOS, ADHD, BMI of 43, who was seen and assessed here yesterday for abscess on her left buttock. She had been on Keflex and doxycycline for 6 days without any improvement. When she arrived she had a large abscess that had between 40 and 60 cc of pus removed. She initially had a high white count and an elevated lactate, however after IV clindamycin, fluid rehydration, and drainage of the abscess she felt much better, heart rate normalized to the 70s, lactate resolved, and white count improved. We had a long decision at that time about risks and benefits of admission versus discharge. And at that time through shared decision making process patient elected to go home with close monitoring both her blood cultures and her symptomatology for potential prompt return. On callback this afternoon I contacted the patient she states she was feeling much better. Heart rate had improved significantly, she had had no repeat fevers, and she was clinically feeling much better. However blood cultures did return positive for gram-positive cocci. We did recommend that she come back into the ED for further assessment. She presents now. Clinically she states she feels much better, but she states she is willing to be admitted secondary to the positive blood cultures. She has no other complaints at this time. She has been taking the clindamycin 450 mg every 6 hours as prescribed. She did get an IV dose of clinda last night, has been taking oral meds since then. Exam demonstrates well-appearing female, abscess still has a small amount of serous/serosanguineous drainage, packing is in place. Redness is notably diminished. Patient is clinically feeling better, but with the presence of the gram-positive cocci in the blood cultures I do feel that continued IV antibiotics is indicated. Discussed the case with the hospitalist Dr. Clemente, he agrees. Repeat blood cultures will be drawn. She did take her last dose of clindamycin at 2 PM, is not ready for redosing yet. Patient will be admitted for continued IV antibiotics and observation over the next 24 hours. I have extensively reviewed the treatment plan with the patient. I have addressed all patient concerns at this time. I have also discussed the plan with the admitting physician and they agree with the current assessment and plan and have agreed to assume responsibility for the patient. All parties demonstrate verbal understanding and agreement with our assessment and plan at this time. The documentation in this chart was dictated using [employer] dictation software. Please excuse any dictation errors. Quality:SDOH Health Related Social Needs: No Data to Display PFSH All Active Problems (Updated 08/13/24 @ 16:34 by Kenny Emanuel DO) Bacteremia (Acute) Abscess of buttock, left (Acute) Mood disorder (Acute) History of depression (Acute) Insomnia (Chronic) Restless leg (Chronic) Dysmenorrhea (Chronic) doing well on OCP Fatty liver (Chronic) Pre US 07/2021: early onset fatty liver disease Food allergy (Chronic) Banana and Pineapple- vomiting Anxiety (Chronic) reportedly generalized and social anxiety; mixed with depression ADHD (attention deficit hyperactivity disorder), combined type (Chronic) palpitations with Concerta and Focalin XR; tolerating Vyvanse Dry scalp (Acute) PCOS (polycystic ovarian syndrome) (Chronic) Ongoing concern- being followed by weight/wellness clinic and [place]o clinic [place] [facility] [place]; Hx of acanthosis nigricans, obesity, dysmenorrhea, hirsutism; sleep study December 2021; referral placed to adult weight and wellness 10/2022 Medical History Nausea Family History Mother Mental disorder depression Asthma Other Diabetes mat great aunt Personal history of malignant neoplasm MGGF-lung Alzheimer disease pat great GF Hyperlipidemia MGF, mat uncle Mental disorder MGF-depression Myocardial infarction mat great GF Hepatitis C PGM Father Hyperlipidemia Social History Smoking/Tobacco Use Status: Never Second Hand Exposure: Yes (Parents, outside only) Smoking risk assessment performed?: Yes Alcohol Intake: never Drug use: Never Substance use type: does not use Adopted: No Caregiver/Support person: No Foster care: No Household members: family Housing: house Number of Children: 0 number of grandchildren: 0 Communication Needs: Corrective Lenses Education Level: college Details: 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 [employer] App[employer] Cert.- synchronous and asynchronous online current occupation: [employer] in [place] Pets and animals: Yes (1 cat, 2 dogs) Pets and animals: cat(s) and dog(s) Do you think of yourself as: lesbian/trevino/homosexual Current gender identity: neither exclusively male nor female What type of physical activity do you participate in: regular exercise Duration: 30-45 minutes/day Frequency: 3-4 times per week Seatbelt use: always Helmet use: Yes Drive intox or ride w/intox 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
--- NOTE | 2024-08-13 17:07 | NUR.NOTE ---
Nursing Note: RN called to get report from ER nurse at 1700, ER nurse unavailable at that time. AP
[2024-08-13 17:15] VITALS: BP 97/42; PULSE 76; RESP 14; TEMP 36.3; O2SAT 98
--- NOTE | 2024-08-13 17:21 | W.PC.ACHO ---
Registration Status: Primary Language: Preferred Language: ED Information & Data Chief Complaint Recheck 08/13/24 16:34 Triage Note Reports coming back into ED 08/13/24 15:38 due to report that blood cultures came back positive. Here for recheck./eval due to this. Has no fever currently. On Clindamycin as well. Reports had abscess drained yesterday from left buttocks. Took tylenol at 0800 this AM. Medical / Surgical History (Last Reviewed 08/05/24 @ 17:54 by Sunshine Carreno NP) Nausea Most Recent Vital Signs Temperature 36.7 C 08/13/24 15:38 Temperature Source Oral 08/13/24 15:38 Pulse 102 H 08/13/24 15:38 Respiratory Rate 20 08/13/24 15:38 Blood Pressure 108/61 08/13/24 15:38 Blood Pressure Position Sitting 08/13/24 15:38 Pulse Oximetry 96 08/13/24 15:38 Oxygen Delivery Method Room Air 08/13/24 15:38 Oxygen Flow Rate 0 08/13/24 15:38 Pain Level 6 08/13/24 15:38 Allergies No Known Drug Allergies Allergy (Verified 08/13/24 15:37) Other (See Comment) NKDA banana Adverse Reaction (Intermediate, Verified 08/13/24 15:37) Other (See Comment) Immediate Vomiting pineapple Adverse Reaction (Intermediate, Verified 08/13/24 15:37) Other (See Comment) Immediate vomiting IV IV Catheter Type [Left Saline Lock Antecubital] IV Catheter Gauge [Left 18 Antecubital] Diet Orders Category Date Time Status Regular/Normal [DIET] Nutrition 08/13/24 Dinner Active Diagnostics 08/13/24 Range/Units 15:52 WBC 13.51 H (4.4-10.8) 10^3/uL RBC 4.69 (3.93-5.22) 10^6/uL Hgb 13.5 (11.2-15.7) g/dL Hct 41.6 (36.0-46.0) % MCV 89 (80-95) fL MCH 28.8 (27.0-33.0) pg MCHC 32.5 (32.0-36.0) % RDW 12.5 (11.7-14.6) % Plt Count 440 H (130-400) 10^3/uL MPV 9.9 (8.0-11.0) fL Immature Gran % 1.4 % Neutrophils % 67.6 % Lymphocytes % 23.0 % Monocytes % 6.5 % Eosinophils % 1.0 % Basophils % 0.5 % Nucleated RBC % 0.0 (0.0-0.3) % Absolute Neutrophils 9.13 H (1.2-6.7) 10^3/uL Absolute Lymphocytes 3.11 (1.2-3.4) 10^3/uL Absolute Monocytes 0.88 H (0.1-0.8) 10^3/uL Absolute Eosinophils 0.14 (0.0-0.7) 10^3/uL Absolute Basophils 0.07 (0.0-0.2) 10^3/uL VBG Lactate 1.4 (<or=2.0) mmol/L Sodium 141 (136-145) mmol/L Potassium 4.2 (3.5-5.1) mmol/L Chloride 104 (98-107) mmol/L Carbon Dioxide 30.0 (21.0-32.0) mmol/L Anion Gap 7.0 (3-11) mmol/L BUN 9 (7-18) mg/dL Creatinine 0.9 (0.55-1.02) mg/dL Est GFR (CKD-EPI 2020) 93.86 (mL/min/1.73m2) Glucose 92 (74-106) mg/dL Calcium 9.6 (8.5-10.1) mg/dL Total Bilirubin 0.2 (0.2-1.0) mg/dL AST 10 L (15-37) U/L ALT 19 (14-59) U/L Alkaline Phosphatase 104 (46-116) U/L Total Protein 7.4 (6.4-8.2) g/dL Albumin 3.3 L (3.4-5.0) g/dL 08/13/24 16:22 Blood Culture - Pending Blood 08/13/24 16:17 Blood Culture - Pending Blood Intake and Output - 24 Hour Total 08/13/24 15:34 thru 08/13/24 15:54 Intake Total 10 Balance 10 Weight 122.47 kg Intake: IV 10 Falls Risk Assessment Contributing Factors No Factors 08/13/24 15:55 Fall Total Score 0 08/13/24 15:55 Level of Risk Standard/Low Risk 08/13/24 15:55 Notes 08/13/24 17:07 Nursing Notes by Jaiden Jurado Nursing Note: RN called to get report from ER nurse at 1700, ER nurse unavailable at that time. AP Initialized on 08/13/24 17:07 - END OF NOTE v v v v v v v v v Sending and/or Receiving Nurses: Please use comment section below to note any information pertinent to the patient hand-off not included above. Information / Comments: A&O x4, heart reg, lungs clear, afebrile, Abscess to left buttock since 08/03, came in for I&D yesterday, D/C home, came back today d/t positive blood cultures for IV abx. Independent, prefers to be on the side to help w/ pain. Report received from: Valentina PETERSON ER nurse at 1715.
[2024-08-13 17:32] VITALS: BP 96/60; PULSE 81; RESP 16; TEMP 36.6; O2SAT 98
[2024-08-13] MEDS: cefTRIAXone 2 GM/50 ML BAG IVPB (17:46)
[2024-08-13] MEDS: metroNIDAZOLE 500 MG TAB PO (17:46)
[2024-08-13] MEDS: VANCOMYCIN/WATER (PEG) 2 GM/400 ML BAG IVPB (18:20)
[2024-08-13 19:09] VITALS: BP 104/67; PULSE 89; RESP 14; TEMP 36.3; O2SAT 100
[2024-08-13] MEDS: diphenhydrAMINE 50 MG/ML VIAL 25 MG IVP (20:45)
[2024-08-13] MEDS: Normal Saline Flush 10 ML SYR IVP (20:46)
[2024-08-13] MEDS: QUEtiapine 25 MG TAB PO (20:46)
[2024-08-13] MEDS: Enoxaparin 40 MG/0.4 ML SYR SC (20:47)
[2024-08-13 22:18] LABS: MRSA PCR Negative (Negative)
[2024-08-13 23:00] VITALS: BP 96/53; PULSE 80; RESP 14; TEMP 36.4; O2SAT 100
[2024-08-14 00:02] LABS: Vancomycin, Random 16.6 ug/mL
[2024-08-14] MEDS: metroNIDAZOLE 500 MG TAB PO ×3 (02:43→18:12)
[2024-08-14 02:45] VITALS: BP 95/67; PULSE 82; RESP 16; TEMP 36.5; O2SAT 97
[2024-08-14] MEDS: Levothyroxine 25 MCG TAB PO (05:54)
[2024-08-14 07:12] VITALS: BP 100/63; PULSE 67; RESP 12; TEMP 36.4; O2SAT 96
[2024-08-14 07:27] LABS: Abs Immature Grans 0.19 10^3/uL (0.0-0.06); Absolute Basophil Count 0.06 10^3/uL (0.0-0.2); Absolute Eosinophil Count 0.18 10^3/uL (0.0-0.7); Absolute Lymphocyte Count 3.12 10^3/uL (1.2-3.4); Absolute Monocyte Count 0.59 10^3/uL (0.1-0.8); Absolute Neutrophil Count 4.55 10^3/uL (1.2-6.7); Basophils % 0.7 %; Eosinophils % 2.1 %; HCT 38.9 % (36.0-46.0); HGB 12.4 g/dL (11.2-15.7); Immature Grans % 2.2 %; Lymphocytes % 35.9 %; MCHC 31.9 % (32.0-36.0); MCV 91 fL (80-95); MPV 10.4 fL (8.0-11.0); Monocytes % 6.8 %; Neutrophils % 52.3 %; Platelet Count 398 10^3/uL (130-400); RBC 4.28 10^6/uL (3.93-5.22); RDW-SD 43.3 fL; WBC 8.69 10^3/uL (4.4-10.8)
[2024-08-14 07:36] LABS: Anion Gap 5.6 mmol/L (3-11); BUN 12 mg/dL (7-18); CO2 30.4 mmol/L (21.0-32.0); CREATININE 0.8 mg/dL (0.55-1.02); Calcium 9.2 mg/dL (8.5-10.1); Chloride 109 mmol/L (98-107); Estimated GFR 108.11 (mL/min/1.73m2); Glucose 86 mg/dL (74-106); Potassium 4.3 mmol/L (3.5-5.1); Sodium 145 mmol/L (136-145)
[2024-08-14 07:44] LABS: Vancomycin, Trough 8.3 ug/mL (10.0-20.0)
[2024-08-14] MEDS: DULoxetine 30 MG CAP 90 MG PO (07:47)
[2024-08-14] MEDS: lamoTRIgine 100 MG TAB PO (07:47)
[2024-08-14] MEDS: Normal Saline Flush 10 ML SYR IVP ×3 (07:48→20:11)
[2024-08-14] MEDS: Prenatal Multivitamin w/CA,FE TAB 1 TAB PO (07:48)
[2024-08-14] MEDS: Enoxaparin 40 MG/0.4 ML SYR SC ×2 (07:48→20:10)
[2024-08-14] MEDS: Magnesium Gluconate 500 MG TAB PO (09:02)
--- NOTE | 2024-08-14 09:05 | PGE_ITS ---
Date of Service Date of service: 08/14/24 Time of Service: 09:05 Assessment and Plan Assessment and plan (1) Gram-positive cocci bacteremia: Start date: 08/14/24 Start time: 09:50 Status: Acute Assessment and plan: As per Blood Cx from 08/12- still only showing GPC in chains most likely strep- confirmed w Lab micro-Annelise that it was not staph this AM Repeat blood Cx on 08/13 still pending IV vancomycin stopped d/t and continue with ceftriaxone IV CBC and BMP in AM (2) Abscess of buttock, left: Status: Acute Assessment and plan: Continue wound dressing BID Wound Cx growing GPC and GNR- no further result at this time Continue Ceftriaxone IV and oral metronidazole (3) ADHD (attention deficit hyperactivity disorder), combined type: Status: Chronic Assessment and plan: Ongoing home vyvanse (4) Leukocytosis: Status: Acute Assessment and plan: Present on pre-admission Resolved today (5) History of depression: Status: Acute Assessment and plan: Continue home duloxetine dose (6) Mood disorder: Status: Acute Assessment and plan: Continue home lamictal (7) Hypothyroidism: Status: Chronic Assessment and plan: Continue home levothyroxine dose - forgets to take at times, last filled 07/11/24, TSH 3.58 and T4 0.9 on 07/08/24 (8) Insomnia: Status: Chronic Assessment and plan: On home dose of seroquel (9) On deep vein thrombosis (DVT) prophylaxis: Status: Acute Assessment and plan: On lovenox Discussed with Dr. Clemente Subjective Subjective Patient reports: no new complaints, feels better, pain is less, tolerating liquids well, tolerating a regular diet and flatus; denies voiding w/o difficulty, diarrhea, vomiting, shortness of breath or fever Exam Narrative Exam Narrative: Alert oriented x 4 without focal deficit, moves all 4 extremities. Heart is regular S1-S2 no cardiac murmur Unlabored breathing, clear breath sounds bilaterally to auscultation Abdomen is round, nondistended, soft, nontender No CVA tenderness, no back or joint pain Lower left buttock with reduced localized erythema, warmth and edema. Incision site with packing protruding showed moderate sero-sanguinous drainage w/o mal-odor.. Objective Last Vital Signs Temp 36.4 C L 08/14/24 07:12 Pulse 67 08/14/24 07:12 Resp 12 08/14/24 07:12 BP 100/63 08/14/24 07:12 Pulse Ox 96 08/14/24 07:12 Laboratory Results - last 24 hr 08/13/24 08/13/24 08/13/24 15:52 21:00 23:26 WBC 13.51 H RBC 4.69 Hgb 13.5 Hct 41.6 MCV 89 MCH 28.8 MCHC 32.5 RDW 12.5 Plt Count 440 H MPV 9.9 Immature Gran % 1.4 Neutrophils % 67.6 Lymphocytes % 23.0 Monocytes % 6.5 Eosinophils % 1.0 Basophils % 0.5 Nucleated RBC % 0.0 Absolute Neutrophils 9.13 H Absolute Lymphocytes 3.11 Absolute Monocytes 0.88 H Absolute Eosinophils 0.14 Absolute Basophils 0.07 VBG Lactate 1.4 Sodium 141 Potassium 4.2 Chloride 104 Carbon Dioxide 30.0 Anion Gap 7.0 BUN 9 Creatinine 0.9 Est GFR (CKD-EPI 2020) 93.86 Glucose 92 Calcium 9.6 Total Bilirubin 0.2 AST 10 L ALT 19 Alkaline Phosphatase 104 Total Protein 7.4 Albumin 3.3 L Vancomycin Trough Random Vancomycin 16.6 MRSA (TEM-PCR) Negative 08/14/24 06:15 WBC 8.69 RBC 4.28 Hgb 12.4 Hct 38.9 MCV 91 MCH 29.0 MCHC 31.9 L RDW 13.0 Plt Count 398 MPV 10.4 Immature Gran % 2.2 Neutrophils % 52.3 Lymphocytes % 35.9 Monocytes % 6.8 Eosinophils % 2.1 Basophils % 0.7 Nucleated RBC % 0.0 Absolute Neutrophils 4.55 Absolute Lymphocytes 3.12 Absolute Monocytes 0.59 Absolute Eosinophils 0.18 Absolute Basophils 0.06 VBG Lactate Sodium 145 Potassium 4.3 Chloride 109 H Carbon Dioxide 30.4 Anion Gap 5.6 BUN 12 Creatinine 0.8 Est GFR (CKD-EPI 2020) 108.11 Glucose 86 Calcium 9.2 Total Bilirubin AST ALT Alkaline Phosphatase Total Protein Albumin Vancomycin Trough 8.3 L Random Vancomycin MRSA (TEM-PCR) Time Spent with Patient Time Spent with Patient: >50 minutes Time was spent: preparing to see the patient(eg.review tests), obtaining and/or reviewing separately otained hiistory, ordering medications,tests, procedures, referring, communicating with other health restorative care technician, indepentently interpreting results, counseling the patient and care coordination
--- NOTE | 2024-08-14 10:00 | W.NUTRFU ---
Date of service: 08/14/24 Time of Service: 10:02 Nutrition Note NOTE: Salvatore being treated for gram-positive bacteremia. Eating well with comment today that the food is better than what she makes for herself at home most days (she comments that she hates cooking/meal prep) Nutrition related labs wnl and Salvatore initially screened as lower nutrition risk, however current BMI suggests class 3 obesity. Gave my card to Salvatore to call if desires any support or guidance with meal prep/planning ideas. Will monitor labs, weight, po intake remainder of admssion Time Spent in Nutritional Counseling and Treatment: 5 min
[2024-08-14 11:37] VITALS: BP 114/71; PULSE 100; RESP 14; TEMP 37.1; O2SAT 96
[2024-08-14] MEDS: Acetaminophen 500 MG TAB 1000 MG PO (12:30)
--- NOTE | 2024-08-14 12:42 | INITIAL_ITS ---
Documented by User: Maggie Mars 08/14/24 17:25 Date of service: 08/14/24 Time of Service: 12:43 Care Management Initial Assmt Initial Assessment Reason for Hospitalization: gram positive bacteremia Functional Status/Living Situation Patient Presentation: Les was lying in bed, their friend (Bessy) was in the room upon CM arrival. Per report, Les is admitted for positive blood cultures and is receiving antibiotics. They were pleasant and willing to engage in conversation. Les states that Zeina (mom), and various friends are great natural supports for them. Les was in college but is currently taking a year off. 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 Les does not receive any home health or community services and for transportation, they often carpool with others. Per Les, they reside in a single family home in [place] with their Mom (Zeina), but is currently moving into an apartment in [facility] ([address] [place] [address]), where they will live alone. Les states that they are independent at baseline, and all of their needs are met. Town of Residence: [place] Resides with: Parent (Zeina-mom) Significant Other/Family: Local (Mom (Zeina), Dad (Taqueria), Brother (Jerrell), Sister (Lisseth) ) Caregiver/Guardian: None identified Natural Supports: Local friends and family Employment Status: Employed ([employer] ) Instrumental Activities of Daily Living (ADLs): Independent Medications Medication Management: No Issues/Barriers identified Physical Functioning/Mobility Assistive Device: None Identified Advance Directives Advance Directives: Do you have an Advance Directive: AD On File at [facility]: N 01/28/14 16:31 Date Asked 08/13/24 08/14/24 01:35 AD Date Reviewed COLST On File at [facility] COLST Date Scanned Code Status Resuscitation Status Full Code Insurance Coverage/Financial Issues Insurance: Medicaid of [place] Financial Issues: None identified Care Team Visit Care Team Role Provider Type Mary Aparicio APRN MD [facility] STAFF PHYSICIAN Lisandra Garvey APRN Primary Care Provider NURSE PRACTITIONER Kenny Emanuel DO Emergency Provider [facility] STAFF PHYSICIAN Gregg Clemente MD Admit Provider [facility] STAFF PHYSICIAN Attending Provider Discharge Potential Discharge Needs: PCP F/U Appt Anticipated Barriers to Discharge: Medical Status Patient/Family Education Needs: Review discharge instructions, discuss Ask Me Three Transportation: Private vehicle (Zeina) Plan: Anticipate Les will be discharged home with no new services. Les will follow up with isis PCP and continue per their plan of care. Les will transport via private vehicle (friends or family). CM will continue to follow and revise plan as needed. Social Determinants of Health Screening Social Determinants of health last assessed in clinic: 08/14/24 Will the Patient Participate in the Screening?: Yes Do you worry about having a steady place to live?: no Problems where you live: no known problems In the past 12 months, have you had to go without electric, gas, oil or water in your home?: no 1. Within the past 12 months, we worried whether our food would run out before we got money to buy more.: Never true 2. Within the past 12 months, the food we bought just didn't last and we didn't have money to get more.: Never true Has lack of transportation kept you from medical appointments or from doing things needed for daily living?: no Has anyone in your life made you feel unsafe or unsupported?: no How hard is it for you to pay for the very basics like food, housing, medical care, and heating? Would you say it is:: Not hard at all Do you want help finding or keeping work or a job?: I do not need or want help If for any reason you need help with day-to-day activities such as bathing, preparing meals, shopping, managing finances, etc., do you get the help you need?: I don?t need any help How often do you feel lonely or isolated from those around you?: Never Do you speak a language other than Palestinian at home?: Yes Does the patient want assistance with any of the above?: No Health Related Social Needs Health related social needs: education (Z55.6) PFSH All Active Problems (Updated 08/16/24 @ 00:02 by ANGEL TROY) Hypothyroidism (Chronic) Gram-positive cocci bacteremia (Acute) Gram-positive bacteremia (Acute) Bacteremia (Acute) Abscess of buttock, left (Acute) Mood disorder (Acute) History of depression (Acute) Insomnia (Chronic) Restless leg (Chronic) Dysmenorrhea (Chronic) doing well on OCP Fatty liver (Chronic) Pre US 07/2021: early onset fatty liver disease Food allergy (Chronic) Banana and Pineapple- vomiting Anxiety (Chronic) reportedly generalized and social anxiety; mixed with depression ADHD (attention deficit hyperactivity disorder), combined type (Chronic) palpitations with Concerta and Focalin XR; tolerating Vyvanse Dry scalp (Acute) PCOS (polycystic ovarian syndrome) (Chronic) Ongoing concern- being followed by weight/wellness clinic and endo clinic at [facility]; Hx of acanthosis nigricans, obesity, dysmenorrhea, hirsutism; sleep study December 2021; referral placed to adult weight and wellness 10/2022 Medical History Nausea Family History Mother Mental disorder depression Asthma Other Diabetes mat great aunt Personal history of malignant neoplasm MGGF-lung Alzheimer disease pat great GF Hyperlipidemia MGF, mat uncle Mental disorder MGF-depression Myocardial infarction mat great GF Hepatitis C PGM Father Hyperlipidemia Social History Smoking/Tobacco Use Status: Never Second Hand Exposure: Yes (Parents, outside only) Smoking risk assessment performed?: Yes Alcohol Intake: never Drug use: Never Substance use type: does not use Adopted: No Caregiver/Support person: No Foster care: No Household members: family Housing: house Number of Children: 0 number of grandchildren: 0 Communication Needs: Corrective Lenses Education Level: college 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: 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 [employer] Cert.- synchronous and asynchronous online current occupation: [employer] in [place] Pets and animals: Yes (1 cat, 2 dogs) Pets and animals: cat(s) and dog(s) Do you think of yourself as: lesbian/trevino/homosexual Current gender identity: neither exclusively male nor female What type of physical activity do you participate in: regular exercise Duration: 30-45 minutes/day Frequency: 3-4 times per week Seatbelt use: always Helmet use: Yes Drive intox or ride w/intox driver examiner: No Fire extinguisher in home: Yes Carbon monox detector in home: Yes Firearms in home: No History History 0 Para Hx # Term Pregnancies Multiple births Hx # Pregnancies Ectopic pregnancies AB induced Hx Number of Living Children AB spontaneous Readmission Within the Past 30 Days Yes or No: No Documented by User: Chen Moore RN 08/17/24 09:00 Care Management Initial Assmt Advance Directives Advance Directives: Do you have an Advance Directive: AD On File at [facility]: N 01/28/14 16:31 Date Asked 08/13/24 08/14/24 01:35 AD Date Reviewed COLST On File at [facility] COLST Date Scanned Social Determinants of Health Screening Social Determinants of health last assessed in clinic: 08/17/24 Health Related Social Needs Health related social needs: education (Z55.6) PFSH All Active Problems (Updated 08/16/24 @ 00:02 by ANGEL TROY) Hypothyroidism (Chronic) Gram-positive cocci bacteremia (Acute) Gram-positive bacteremia (Acute) Bacteremia (Acute) Abscess of buttock, left (Acute) Mood disorder (Acute) History of depression (Acute) Insomnia (Chronic) Restless leg (Chronic) Dysmenorrhea (Chronic) doing well on OCP Fatty liver (Chronic) Pre 07/2021: early onset fatty liver disease Food allergy (Chronic) Banana and Pineapple- vomiting Anxiety (Chronic) reportedly generalized and social anxiety; mixed with depression ADHD (attention deficit hyperactivity disorder), combined type (Chronic) palpitations with Concerta and Focalin XR; tolerating Vyvanse Dry scalp (Acute) PCOS (polycystic ovarian syndrome) (Chronic) Ongoing concern- being followed by weight/wellness clinic and endo clinic at [facility]; Hx of acanthosis nigricans, obesity, dysmenorrhea, hirsutism; sleep study December 2021; referral placed to adult weight and wellness 10/2022 Medical History Nausea Family History Mother Mental disorder depression Asthma Other Diabetes mat great aunt Personal history of malignant neoplasm MGGF-lung Alzheimer disease pat great GF Hyperlipidemia MGF, mat uncle Mental disorder MGF-depression Myocardial infarction mat great GF Hepatitis C PGM Father Hyperlipidemia Social History Smoking/Tobacco Use Status: Never Second Hand Exposure: Yes (Parents, outside only) Smoking risk assessment performed?: Yes Alcohol Intake: never Drug use: Never Substance use type: does not use Adopted: No Caregiver/Support person: No Foster care: No Household members: family Housing: house Number of Children: 0 number of grandchildren: 0 Communication Needs: Corrective Lenses Education Level: college Details: 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 [employer] Cert.- synchronous and asynchronous online current occupation: [employer] in [place] Pets and animals: Yes (1 cat, 2 dogs) Pets and animals: cat(s) and dog(s) Do you think of yourself as: lesbian/trevino/homosexual Current gender identity: neither exclusively male nor female What type of physical activity do you participate in: regular exercise Duration: 30-45 minutes/day Frequency: 3-4 times per week Seatbelt use: always Helmet use: Yes Drive intox or ride w/intox driver examiner: No Fire extinguisher in home: Yes Carbon monox detector in home: Yes Firearms in home: No History History 0 Para Hx # Term Pregnancies Multiple births Hx # Pregnancies Ectopic pregnancies AB induced Hx Number of Living Children AB spontaneous
[2024-08-14] MEDS: Lactobacillus Acidophilus CAP 1 CAP PO ×2 (14:58→20:10)
[2024-08-14 15:12] VITALS: BP 128/67; PULSE 91; RESP 14; TEMP 37.2; O2SAT 96
[2024-08-14] MEDS: cefTRIAXone 2 GM/50 ML BAG IVPB (16:38)
[2024-08-14 19:24] VITALS: BP 132/86; PULSE 114; RESP 15; TEMP 37.4; O2SAT 97
[2024-08-14] MEDS: QUEtiapine 25 MG TAB PO (20:10)
[2024-08-14 23:14] VITALS: BP 113/72; PULSE 107; RESP 15; TEMP 37.3; O2SAT 95
[2024-08-15] MEDS: metroNIDAZOLE 500 MG TAB PO ×2 (02:25→09:54)
[2024-08-15 03:25] VITALS: BP 120/65; PULSE 88; TEMP 36.4; O2SAT 96
[2024-08-15] MEDS: Levothyroxine 25 MCG TAB PO (05:47)
[2024-08-15 06:39] LABS: Absolute Basophil Count 0.05 10^3/uL (0.0-0.2); Absolute Eosinophil Count 0.22 10^3/uL (0.0-0.7); Absolute Lymphocyte Count 3.46 10^3/uL (1.2-3.4); Absolute Monocyte Count 0.69 10^3/uL (0.1-0.8); Basophils % 0.5 %; Eosinophils % 2.2 %; HCT 38.7 % (36.0-46.0); HGB 12.7 g/dL (11.2-15.7); Lymphocytes % 34.5 %; MCH 28.5 pg (27.0-33.0); MCHC 32.8 % (32.0-36.0); MCV 87 fL (80-95); MPV 10.1 fL (8.0-11.0); Monocytes % 6.9 %; Neutrophils % 52.9 %; Platelet Count 451 10^3/uL (130-400); RBC 4.45 10^6/uL (3.93-5.22); RDW 12.4 % (11.7-14.6); RDW-SD 39.7 fL; WBC 10.02 10^3/uL (4.4-10.8)
[2024-08-15 07:30] VITALS: BP 108/64; PULSE 108; TEMP 36.7; O2SAT 96
--- NOTE | 2024-08-15 09:32 | DSE_ITS ---
Date of service: 08/15/24 Time of Service: 09:32 DS: Diagnosis Discharge Diagnosis (1) Gram-positive cocci bacteremia: Status: Acute (2) Abscess of buttock, left: Status: Acute (3) ADHD (attention deficit hyperactivity disorder), combined type: Status: Chronic (4) Leukocytosis: Status: Acute (5) History of depression: Status: Acute (6) Mood disorder: Status: Acute (7) Hypothyroidism: Status: Chronic (8) Insomnia: Status: Chronic (9) On deep vein thrombosis (DVT) prophylaxis: Status: Acute Discharge Plan Disposition Patient Disposition: Home Condition: Improving Discharge Details Reason For Visit: gram positive bacteremia Admit Date/Time: 08/13/24 16:35 Admit Provider: Gregg Clemente Attending Provider: Gregg Clemente Primary Care Provider: Lisandra Garvey [facility] Hospital Course: This 18 years old female patient with a past medical history of PCOS, ADHD, morbid obesity returned to the ED on 08/13/24 due to Gram positive bacteremia seen on blood cultures from 08/12/24. On the 08/12/24 the patient was seen and her left buttock abscess/ boil was lanced, drained, and dressed s/p packing insertion. She was discharged on clindamycin.Doxycycline and cephalexin were ordered for about 6 days prior resulting in worsening pain, swelling, redness to the left buttock, fevers , chills , nausea and vomiting. The patient was admitted to the medical floor by the hospitalist team for Gram positive bacteremia, left buttock cellulitis/ abscess for ongoing treatment with Vancomycin IV, ceftriaxone and oral metronidazole. Vancomycin discontinued due to rash on loading dose. Leukocytosis resolved from max WBC at 13.5 to 10. Blood cultures grew streptococcus anginosus; repeat blood cultures were negative at 24 hours. Wound culture grew pansensitive E. Coli and streptococcus anginosus. On the day of discharge the patient was hemodynamically stable, afebrile, left buttock site showed improvement with ongoing AM and PM dressing change with packing. Continue to change the top dressing twice a dayuntil seen by PCP on Saturday. The patient will be discharged home on Augmentin, metronidazole and a probiotic. Recommendations for PCP follow-up: Left buttock abscess, strep bacteremia and completion of therapy Evaluate need for ongoing packing and dressing Hypothyroidism and need Levothyroxine Discussed with Dr. Clemente Home Meds and New Rx's Prescriptions: New Bio-K plus 50 billion cell capsule,delayed release(DR/EC) 1 cap PO DAILY Qty: 14 0RF Rx Instructions: Take 3 hours apart from oral antibiotics metronidazole 500 mg tablet 500 mg PO Q8H 8 Days Qty: 24 0RF amoxicillin-pot clavulanate 875-125 mg tablet 1 tab PO Q12H Qty: 12 0RF Continued duloxetine 60 mg capsule,delayed release(DR/EC) 60 mg PO DAILY duloxetine 30 mg capsule,delayed release(DR/EC) 30 mg PO DAILY lisdexamfetamine [Vyvanse] 50 mg capsule 50 mg PO DAILY lamotrigine 100 mg tablet 100 mg PO DAILY Mirena 21 mcg/24 hours (8 yrs) 52 mg intrauterine device 1 device intrauterine ONCE Qty: 1 0RF Rx Instructions: as a single dose quetiapine [Seroquel] 25 mg tablet 25 mg PO QHS Qty: 60 2RF Rx Instructions: Take 1-2 tab by mouth at bedtime for insomnia prenat.vits,polly,uny-baxv-ylzfo Tablet 1 tab PO DAILY Qty: 60 3RF magnesium gluconate 27.5 mg magne- sium (500 mg) tablet 27.5 mg PO DAILY Qty: 30 3RF Discontinued clindamycin HCl 150 mg capsule 450 mg PO Q6H 7 Days Qty: 84 0RF Discharge Instructions Referrals: Lisandra Garvey APRN [Primary Care Provider] - (Follow-up within 7 days of discharge ) Activity:: Activity as Tolerated Equipment/Supplies:: No Equipment Needed Diet:: As Tolerated DS: Summary Time Spent with Patient providing and/or coordinating discharge services: Greater than 30 minutes Status at Discharge Functional status at discharge: independent ambulation Overall status at discharge: patient is progressing back to baseline Mental Status: mental status grossly normal Speech and Movement: speech and movement normal Mood: congruent mood Affect: normal affect Quality:SDOH Health Related Social Needs: Health related social needs education (Z55.6) Exam Narrative Exam Narrative: Alert oriented x 4 without focal deficit, moves all 4 extremities. Heart is regular S1-S2 no cardiac murmur Unlabored breathing, clear breath sounds bilaterally to auscultation Abdomen is round, nondistended As per RN:reduced localized erythema, warmth and edema to left buttock during dressing change, minimal drainage no mal-odor Psych Mental Status: mental status grossly normal Speech and Movement: speech and movement normal Mood: congruent mood Affect: normal affect DS: Data Vitals/I&O Vitals and I&O: Vital Signs Temperature 36.7 C 08/15/24 07:30 Temperature Source Temporal Artery Scan 08/15/24 07:30 Pulse 108 H 08/15/24 07:30 Pulse Rhythm Regular 08/13/24 17:32 Respiratory Rate 15 08/14/24 23:14 Respiratory Effort Normal 08/13/24 17:32 Respiratory Depth Normal 08/13/24 17:32 Respiratory Pattern Normal 08/13/24 17:32 Blood Pressure 108/64 08/15/24 07:30 Blood Pressure Position Sitting 08/13/24 15:38 Pulse Oximetry 96 08/15/24 07:30 Oxygen Delivery Method Room Air 08/15/24 07:30 Oxygen Flow Rate 0 08/15/24 07:30 Pain Level 2 08/15/24 07:30 Intake & Output 08/14/24 08/14/24 08/15/24 11:59 23:59 11:59 Output Total 1350 / 1350 Balance -1350 / -1350 Output: Urine 1350 / 1350 Other: Urine Color Yellow Urine Appearance Clear Urine Odor None Comment pT reports they have voided independently. Data Completed and Pending Labs on day of discharge: Labs from last 24 hours 08/15/24 06:25 WBC 10.02 RBC 4.45 Hgb 12.7 Hct 38.7 MCV 87 D MCH 28.5 MCHC 32.8 RDW 12.4 Plt Count 451 H MPV 10.1 Immature Gran % 3.0 Neutrophils % 52.9 Lymphocytes % 34.5 Monocytes % 6.9 Eosinophils % 2.2 Basophils % 0.5 Nucleated RBC % 0.0 Absolute Neutrophils 5.30 Absolute Lymphocytes 3.46 H Absolute Monocytes 0.69 Absolute Eosinophils 0.22 Absolute Basophils 0.05 Preliminary micro results at discharge 08/13/24 16:17 Blood Culture - Preliminary Blood NO GROWTH 24 HOURS 08/13/24 16:22 Blood Culture - Preliminary Blood NO GROWTH 24 HOURS PFSH All Active Problems (Updated 08/14/24 @ 09:15 by Mary Aparicio APRN) Leukocytosis (Acute) On deep vein thrombosis (DVT) prophylaxis (Acute) Hypothyroidism (Chronic) Gram-positive cocci bacteremia (Acute) Gram-positive bacteremia (Acute) Bacteremia (Acute) Abscess of buttock, left (Acute) Mood disorder (Acute) History of depression (Acute) Insomnia (Chronic) Restless leg (Chronic) Dysmenorrhea (Chronic) doing well on OCP Fatty liver (Chronic) Pre US 07/2021: early onset fatty liver disease Food allergy (Chronic) Banana and Pineapple- vomiting Anxiety (Chronic) reportedly generalized and social anxiety; mixed with depression ADHD (attention deficit hyperactivity disorder), combined type (Chronic) palpitations with Concerta and Focalin XR; tolerating Vyvanse Dry scalp (Acute) PCOS (polycystic ovarian syndrome) (Chronic) Ongoing concern- being followed by weight/wellness clinic and endo clinic at [facility] [place]; Hx of acanthosis nigricans, obesity, dysmenorrhea, hirsutism; sleep study December 2021; referral placed to adult weight and wellness 10/2022 Medical History Nausea Family History Mother Mental disorder depression Asthma Other Diabetes mat great aunt Personal history of malignant neoplasm MGGF-lung Alzheimer disease pat great GF Hyperlipidemia MGF, mat uncle Mental disorder MGF-depression Myocardial infarction mat great GF Hepatitis C PGM Father Hyperlipidemia Social History Smoking/Tobacco Use Status: Never Second Hand Exposure: Yes (Parents, outside only) Smoking risk assessment performed?: Yes Alcohol Intake: never Drug use: Never Substance use type: does not use Adopted: No Caregiver/Support person: No Foster care: No Household members: family Housing: house Number of Children: 0 number of grandchildren: 0 Communication Needs: Corrective Lenses Education Level: college Details: 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 [employer] Cert.- synchronous and asynchronous online current occupation: [employer] in [place] Pets and animals: Yes (1 cat, 2 dogs) Pets and animals: cat(s) and dog(s) Do you think of yourself as: lesbian/trevino/homosexual Current gender identity: neither exclusively male nor female What type of physical activity do you participate in: regular exercise Duration: 30-45 minutes/day Frequency: 3-4 times per week Seatbelt use: always Helmet use: Yes Drive intox or ride w/intox bellman driver: No Fire extinguisher in home: Yes Carbon monox detector in home: Yes Firearms in home: No History History 0 Para Hx # Term Pregnancies Multiple births Hx # Pregnancies Ectopic pregnancies AB induced Hx Number of Living Children AB spontaneous Time Spent with Patient Time Spent with Patient: 70-84 minutes4 Time was spent: preparing to see the patient(eg.review tests), obtaining and/or reviewing separately otained hiistory, ordering medications,tests, procedures, referring, communicating with other health customer care professional, indepentently interpreting results, counseling the patient and care coordination
[2024-08-15] MEDS: Acetaminophen 500 MG TAB 1000 MG PO (09:54)
[2024-08-15] MEDS: DULoxetine 30 MG CAP 90 MG PO (09:54)
[2024-08-15] MEDS: lamoTRIgine 100 MG TAB PO (09:54)
[2024-08-15] MEDS: Magnesium Gluconate 500 MG TAB PO (09:54)
[2024-08-15] MEDS: Prenatal Multivitamin w/CA,FE TAB 1 TAB PO (09:54)
[2024-08-15] MEDS: Normal Saline Flush 10 ML SYR IVP (09:55)
[2024-08-15] MEDS: Amoxicillin 875/Clav. 125 TAB PO (10:15)
--- NOTE | 2024-08-15 18:29 | PDOC.CMDIS ---
Date of service: 08/15/24 Time of Service: 18:29 LACE Index Scoring Tool Questions: Length of Stay (in days): 2 Was the patient admitted via the E.D.?: Yes Comorbidities: Mild Liver/Renal Disease E.D. Visits: 2 Answers: Total Score: 9 Risk of Readmission: Low Risk Care Management Discharge Plan Reason for Hospitalization: left buttock abscess - gram positive bacteremia Discharge Plan: Les was discharged home with no new services. They will f/u with their PCP and continue per the prescribed discharge plan of care. They were transported home by their friend. Patient/Family Education Needs: Review of discharge instructions, activity, limitations and discuss Ask me 3. SDOH Health Related Social Needs: Health related social needs education (Z55.6)
== END 2024-08-15 10:50 | disposition home or self-care (01) | DRG 603 ==
LOC: ER 17:02 → MS 17:48
PROVIDERS: Family Medicine; Admitting Provider Family Medicine; Emergency Provider Student in an Organized Health Care Education/Training Program; PCP Nurse Practitioner Family; Responsible Provider Nurse Practitioner Acute Care; Visit Provider Family Medicine
DX: L02.31 Cutaneous abscess of buttock (principal); R78.81 Bacteremia; Z68.41 Body mass index [BMI] 40.0-44.9, adult; F90.2 Attention-deficit hyperactivity disorder, combined type; E03.9 Hypothyroidism, unspecified; D72.829 Elevated white blood cell count, unspecified; G47.00 Insomnia, unspecified; Z79.899 Other long term (current) drug therapy; E28.2 Polycystic ovarian syndrome; E66.01 Morbid (severe) obesity due to excess calories; G25.81 Restless legs syndrome; K76.0 Fatty (change of) liver, not elsewhere classified; F41.8 Other specified anxiety disorders; F39 Unspecified mood [affective] disorder; B95.4 Other streptococcus as the cause of diseases classified elsewhere; L27.0 Generalized skin eruption due to drugs and medicaments taken internally; T36.8X5A Adverse effect of other systemic antibiotics, initial encounter; B96.20 Unspecified Escherichia coli [E. coli] as the cause of diseases classified elsewhere
CPT/HCPCS: 00123; 36415; 80048; 80053; 81025; 87040; 87641; 99285; J1650; 80202; 83605; 85025; 99223; 99233; 99239; J0696; J1200; J3372; J3490

== ENCOUNTER 2024-09-18 19:15 | Outpatient (REF) | payer MEDICAID, SELFPAY ==
[2024-09-18 20:22] LABS: Abs Immature Grans 0.02 10^3/uL (0.0-0.06); Absolute Basophil Count 0.02 10^3/uL (0.0-0.2); Absolute Eosinophil Count 0.18 10^3/uL (0.0-0.7); Absolute Monocyte Count 0.55 10^3/uL (0.1-0.8); Absolute Neutrophil Count 4.91 10^3/uL (1.2-6.7); Basophils % 0.2 %; Eosinophils % 2.1 %; HCT 40.4 % (36.0-46.0); HGB 13.3 g/dL (11.2-15.7); Immature Grans % 0.2 %; Lymphocytes % 33.8 %; MCHC 32.9 % (32.0-36.0); MCV 88 fL (80-95); MPV 10.2 fL (8.0-11.0); Monocytes % 6.4 %; Neutrophils % 57.3 %; Platelet Count 407 10^3/uL (130-400); RBC 4.58 10^6/uL (3.93-5.22); RDW 13.2 % (11.7-14.6); RDW-SD 42.9 fL; WBC 8.58 10^3/uL (4.4-10.8)
[2024-09-18 20:31] LABS: Iron 39 ug/dL (50-170); Total Iron Binding Capacity 334 ug/dL (250-450); Transferrin Sat 12 % (15-50)
[2024-09-18 20:58] LABS: TSH (W/Ref FT4) 3.64 uIU/mL (0.36-3.74); Vitamin B12 627 pg/mL (193-986); Vitamin D 25 Total 35 ng/mL (30-100)
== END 2024-09-18 19:16 | disposition home or self-care (01) ==
LOC: LBN 19:15
PROVIDERS: PCP Nurse Practitioner Family
DX: F33.1 Major depressive disorder, recurrent, moderate (principal); D64.9 Anemia, unspecified; R53.83 Other fatigue; Z79.3 Long term (current) use of hormonal contraceptives; Z79.899 Other long term (current) drug therapy
CPT/HCPCS: 82306; 82607; 83540; 83550; 84443; 85025

== ENCOUNTER 2025-01-06 17:21 | Outpatient (REF) | payer MEDICAID, SELFPAY | END 2025-01-06 17:22 | disposition home or self-care (01) | LOC: LBN 17:21 | PROVIDERS: PCP Nurse Practitioner Family; Visit Provider Obstetrics & Gynecology | DX: R10.2 Pelvic and perineal pain (principal); Z12.4 Encounter for screening for malignant neoplasm of cervix | CPT/HCPCS: 88142; 87086 ==

== ENCOUNTER 2025-01-28 02:28 | Outpatient (CLI) | payer MEDICAID, SELFPAY ==
--- NOTE | 2025-01-28 07:15 | DI.US_ITS ---
Exam(s) US PELVIS TRANSVAGINAL EXAM: US PELVIS TRANSVAGINAL CLINICAL HISTORY: pelvic pain; lost IUD strings R10.2 [id number]. TECHNIQUE: Transabdominal and transvaginal pelvic ultrasound was performed using standard protocol. COMPARISON: There are no priors for comparison. FINDINGS: UTERUS: Position: Anteverted. Size: 7.0 long by 3.0 AP by 4.2 transverse cm Endometrium: 0.4 cm. Normal for patient's menstrual status. The IUD is present and is in good position. Myometrium: Unremarkable. Cervix: Unremarkable. OVARIES: Right: 3.5 x 1.8 x 2.8 cm Cyst or mass: No suspicious cystic or solid masses. Left: 2.5 x 1.8 x 1.5 cm Cyst or mass: No suspicious cystic or solid masses. DOPPLER: Color: Symmetric and uniform flow to both ovaries. CUL-DE-SAC: Free fluid: There is a [id number] amount of free fluid in the cul-de-sac. Other: None. IMPRESSION: 1. Normal-appearing uterus with endometrial stripe within normal limits. 2. The IUD is present and in good position. 3. Unremarkable bilateral ovaries. DATA REPOSITORY:
== END 2025-01-28 02:48 ==
LOC: DI 02:28
PROVIDERS: PCP Nurse Practitioner Family; Visit Provider Obstetrics & Gynecology
DX: R10.2 Pelvic and perineal pain (principal); T83.32XA Displacement of intrauterine contraceptive device, initial encounter
CPT/HCPCS: 76830; 76856

== ENCOUNTER 2025-04-03 12:11 | Emergency (ER) | payer MEDICAID, SELFPAY ==
[2025-04-03 12:20] VITALS: BP 108/79; PULSE 99; RESP 16; TEMP 36.8; O2SAT 98
[2025-04-03 12:22] VITALS: BP 108/79; PULSE 99; RESP 16; TEMP 36.8; O2SAT 98
--- NOTE | 2025-04-03 12:35 | W.ED.GENAD ---
Discharge Plan Disposition Patient Disposition: Home Condition: Stable Discharge Details Clinical Impression: Abscess of buttock, left Primary Care Provider: Lisandra Garvey ED Provider: Yumiko Rodriges Home Meds and New Rx's Prescriptions: New clindamycin HCl 150 mg capsule 450 mg PO TID 7 Days Qty: 63 0RF Rx Instructions: Take 3 capsules by mouth 3 times daily for the next 7 days No Action lisdexamfetamine [Vyvanse] 50 mg capsule 50 mg PO DAILY lamotrigine 100 mg tablet 150 mg PO DAILY Mirena 21 mcg/24 hours (8 yrs) 52 mg intrauterine device 1 device intrauterine ONCE Qty: 1 0RF Rx Instructions: as a single dose fluvoxamine 100 mg tablet 100 mg PO DAILY naproxen 500 mg tablet 500 mg PO BID Qty: 30 0RF Discharge Instructions Instructions: Skin Abscess, Abscess Incision and Drainage ED Additional Instructions: Please have the packing removed in approximately 3 days. You may follow-up here or urgent care what is more convenient for you for that. Please follow-up with general surgery for further evaluation and care. Take the antibiotics as directed with yogurt or probiotic daily. Please take Tylenol or Ibuprofen with food every 4-6 hours as needed for pain and swelling. After removing the packing you may sit in a lukewarm sitz bath with clean water. You may wash it under running soap and water daily thereafter. Follow up with primary care provider in 3-5 days. Return to ED sooner if any worsening pain, fever feeling sicker at any time or concerns. Stand Alone Forms: Portal Information Referrals: Cristhian Champagne MD [ [facility] STAFF PHYSICIAN, Surgery] - 5 days Referral Note: ER follow up/ Gluteal Abscess, call for appt Clinical Impression: Abscess of buttock, left Discharge Data Discharge Date/Time-TO BE ENTERED AT DEPARTURE: 04/03/25 14:23 HPI General Mode of arrival: ambulatory. Date/Time Provider Initiated Documentation: 04/03/25 12:24. Limitations to Documentation: no limitations. Information obtained by: patient, RN notes reviewed and old records reviewed. HPI Narrative: 19 year old female presents to the ER with a cc of left gluteal abscess which began on Saturday. 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 On exam she has a very indurated left buttock with a abscess noted, there is a small amount of serous drainage noted. Related Data Home Medications ?Medication ?Instructions ?Recorded ?Confirmed levonorgestrel (Mirena) 1 device intrauterine ONCE #1 ea 12/07/22 04/03/25 lisdexamfetamine 50 mg capsule 50 mg PO DAILY 07/29/24 04/03/25 (Vyvanse) lamotrigine 100 mg tablet 150 mg PO DAILY 01/06/25 04/03/25 fluvoxamine 100 mg tablet 100 mg PO DAILY 04/02/25 04/03/25 naproxen 500 mg tablet 500 mg PO BID #30 tabs 04/02/25 04/03/25 clindamycin HCl 150 mg capsule 450 mg (3 x 150 mg) PO TID Abscess 04/03/25 7 days #63 caps Previous Rx's ?Medication ?Instructions ?Recorded levonorgestrel (Mirena) 1 device intrauterine ONCE #1 ea 12/07/22 naproxen 500 mg tablet 500 mg PO BID #30 tabs 04/02/25 clindamycin HCl 150 mg capsule 450 mg (3 x 150 mg) PO TID Abscess 04/03/25 7 days #63 caps Allergies Allergy/AdvReac Type Severity Reaction Status Date / Time No Known Drug Allergies Allergy Other (See Verified 04/03/25 12:22 Comment) banana AdvReac Intermediate Other (See Verified 04/03/25 12:22 Comment) pineapple AdvReac Intermediate Other (See Verified 04/03/25 12:22 Comment) General Stated Complaint: Cellulitis ALLISON: 3 Review of Systems All systems reviewed & are unremarkable except as noted in HPI and below Integumentary/Breasts Skin/Breast: Reports as per HPI, Reports furuncle, Reports skin pain and Reports skin swelling Exam Back/Spine/Pelvis Back/spine/pelvis image:  1. Very raised, indurated abscess noted 2. Erythema Course Vital Signs Vital signs: Vital Signs Temperature 36.8 C 04/03/25 12:20 Pulse 99 H 04/03/25 12:20 Respiratory Rate 16 04/03/25 12:20 Blood Pressure 108/79 04/03/25 12:20 Pulse Oximetry 98 04/03/25 12:20 Temperature 36.8 C 04/03/25 12:22 Pulse 99 H 04/03/25 12:22 Respiratory Rate 16 04/03/25 12:22 Blood Pressure 108/79 04/03/25 12:22 Pulse Oximetry 98 04/03/25 12:22 Pain Level 6 04/03/25 12:22 Lab/Test Results Lab/Test Results: 04/03/25 12:32 Blood Blood Culture - Pending 04/03/25 12:32 Blood Blood Culture - Pending Procedure Abscess Drainage Date of Procedure: 04/03/25 Time of Procedure: 14:00 Provider that performed the procedure: Yumiko Aj Time Out Performed: Yes Patient Consented: Verbally Pre Procedure Medication: Morphine Location of Exam: Buttocks/left side Indication: Abscess, Pain, Redness and Swelling. Local anesthetic: Local Anesthetic: Bupivicaine 0.5%, Lidocaine 1% and with epi, Amount of Local Anesthetic Used (mL): 2.5. Sterility: Non Sterile. Procedure Prep: Hand hygiene, Surgical Mask, Sterile Gloves, Chlohexidine, Alcohol and 11 blade. Technique used, incised with blade. Amount of fluid expressed(mL): 20. Irrigation: no irrigation Packing: Iodoform. Outcome: Sucessful Procedure Description/Note: Abscess incision and drainage performed, patient tolerated well anesthetized with 1% lidocaine with epi and 0.5% bupivacaine, significant purulent foul-smelling drainage expressed, quarter inch iodoform packing placed approximately 3 to 4 inches, instructed patient to have that removed in 3 days. Will send home on antibiotics and have patient follow-up with general surgery. Ultrasound: Not used Complications: None Medical Decision Making 19 year old female presents to the ER with a cc of left gluteal abscess which began on Saturday. 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 On exam she has a very indurated left buttock with a abscess noted, there is a small amount of serous drainage noted. CBC shows slight leukocytosis with a white blood cell count of 13.33, neutrophils 9.98, CMP largely within normal limits, lactate within normal limits. Patient was given clindamycin 300 mg IV piggyback here. Culture obtained, see procedure note, abscess I&D performed. Patient tolerated well. Area was anesthetized with 1% lidocaine with epi and 0.5% of bupivacaine. Incision made with 11 blade, significant amount of foul purulent drainage expressed, was packed with quarter inch iodoform packing approximately 3 inches. Instructed to have this removed in 3 days. Will give referral to general surgery for follow-up. I will send patient home with clindamycin for 7 days. This text was generated using Medifyation system, please disregard any oddities of phrase or misspellings. Lab Data Lab results reviewed: Yes I reviewed the patient's lab results. Labs: 04/03/25 14:03 Buttock - Left Wound Culture - Pending 04/03/25 14:03 Buttock - Left Gram Stain - Pending 04/03/25 13:12 Blood Blood Culture - Pending 04/03/25 13:04 Blood Blood Culture - Pending Laboratory Tests Range/Units 04/03/25 12:35 WBC (4.4-10.8) 10^3/uL 13.33 H RBC (3.93-5.22) 10^6/uL 4.83 Hgb (11.2-15.7) g/dL 13.8 Hct (36.0-46.0) % 40.7 MCV (80-95) fL 84 MCH (27.0-33.0) pg 28.6 MCHC (32.0-36.0) % 33.9 RDW (11.7-14.6) % 12.5 Plt Count (130-400) 10^3/uL 358 MPV (8.0-11.0) fL 10.8 Immature Gran % % 0.4 Neutrophils % % 74.9 Lymphocytes % % 16.8 Monocytes % % 6.8 Eosinophils % % 0.8 Basophils % % 0.3 Nucleated RBC % (0.0-0.3) % 0.0 Absolute Neutrophils (1.2-6.7) 10^3/uL 9.98 H Absolute Lymphocytes (1.2-3.4) 10^3/uL 2.24 Absolute Monocytes (0.1-0.8) 10^3/uL 0.91 H Absolute Eosinophils (0.0-0.7) 10^3/uL 0.11 Absolute Basophils (0.0-0.2) 10^3/uL 0.04 VBG Lactate (<or=2.0) mmol/L 1.0 Sodium (136-145) mmol/L 140 Potassium (3.5-5.1) mmol/L 3.9 Chloride (98-107) mmol/L 108 H Carbon Dioxide (20.0-31.0) mmol/L 23.6 Anion Gap (3-11) mmol/L 8.4 BUN (9-23) mg/dL 8 L Creatinine (0.55-1.02) mg/dL 0.70 Est GFR (CKD-EPI 2020) (mL/min/1.73m2) 105.05 Glucose (74-106) mg/dL 98 Calcium (8.3-10.6) mg/dL 8.8 Total Bilirubin (0.2-1.2) mg/dL 0.30 AST (<34) U/L 21 ALT (10-49) U/L 27 Alkaline Phosphatase (46-116) U/L 114 Total Protein (5.7-8.2) g/dL 7.4 Albumin (3.2-5.0) g/dL 4.5 Quality:SDOH Health Related Social Needs: Health related social needs education PFSH All Active Problems (Updated 04/03/25 @ 14:05 by Yumiko Rodriges NP) Abscess of buttock, left (Acute) IUD strings lost (Acute) Hypothyroidism (Chronic) Gram-positive cocci bacteremia (Acute) Gram-positive bacteremia (Acute) Bacteremia (Acute) Abscess of buttock, left (Acute) Mood disorder (Acute) History of depression (Acute) Insomnia (Chronic) Restless leg (Chronic) Dysmenorrhea (Chronic) doing well on OCP Fatty liver (Chronic) Pre US 07/2021: early onset fatty liver disease Food allergy (Chronic) Banana and Pineapple- vomiting Anxiety (Chronic) reportedly generalized and social anxiety; mixed with depression ADHD (attention deficit hyperactivity disorder), combined type (Chronic) palpitations with Concerta and Focalin XR; tolerating Vyvanse Dry scalp (Acute) PCOS (polycystic ovarian syndrome) (Chronic) Ongoing concern- being [place] weight[place]wellness clinic [place] [facility] Hx of acanthosis nigricans, obesity, dysmenorrhea, hirsutism; sleep study December 2021; referral placed to adult weight and wellness 10/2022 Medical History Nausea Family History Mother Mental disorder depression Asthma Other Diabetes mat great aunt Personal history of malignant neoplasm MGGF-lung Alzheimer disease pat great GF Hyperlipidemia MGF, mat uncle Mental disorder MGF-depression Myocardial infarction mat great GF Hepatitis C PGM Father Hyperlipidemia Social History Smoking/Tobacco Use Status: Never Second Hand Exposure: Yes (Parents, outside only) Smoking risk assessment performed?: Yes Alcohol Intake: never Drug use: Never Substance use type: does not use Adopted: No Caregiver/Support person: No Foster care: No Household members: family Housing: house Number of Children: 0 number of grandchildren: 0 Communication Needs: Corrective Lenses Education Level: college 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: [employer] in [place] Pets and animals: Yes (1 cat, 2 dogs) Pets and animals: cat(s) and dog(s) Do you think of yourself as: lesbian/trevino/homosexual Current gender identity: neither exclusively male nor female What type of physical activity do you participate in: regular exercise Duration: 30-45 minutes/day Frequency: 3-4 times per week Seatbelt use: always Helmet use: Yes Drive 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
[2025-04-03] MEDS: Lidocaine/Epinephri/Tetracaine Topical Gel 3 ML TP (12:44)
[2025-04-03] MEDS: Normal Saline 500 ML IV (12:51)
[2025-04-03] MEDS: MORPHine 10 MG/ML VIAL 2 MG IVP (12:51)
[2025-04-03] MEDS: Ondansetron 4 MG/2 ML VIAL IVP (12:52)
[2025-04-03 12:53] LABS: Abs Immature Grans 0.05 10^3/uL (0.0-0.06); HCT 40.7 % (36.0-46.0); HGB 13.8 g/dL (11.2-15.7); Immature Grans % 0.4 %; MCH 28.6 pg (27.0-33.0); MCHC 33.9 % (32.0-36.0); MCV 84 fL (80-95); MPV 10.8 fL (8.0-11.0); Platelet Count 358 10^3/uL (130-400); RBC 4.83 10^6/uL (3.93-5.22); RDW 12.5 % (11.7-14.6); RDW-SD 38.0 fL; WBC 13.33 10^3/uL (4.4-10.8)
[2025-04-03] MEDS: CLINDAMYCIN 300 MG/50 ML BAG 100 MG IVPB (13:00)
[2025-04-03 13:05] LABS: ALT 27 U/L (10-49); AST 21 U/L (<34); Albumin 4.5 g/dL (3.2-5.0); Alkaline Phosphatase 114 U/L (46-116); Anion Gap 8.4 mmol/L (3-11); BUN 8 mg/dL (9-23); Bilirubin, Total 0.30 mg/dL (0.2-1.2); CO2 23.6 mmol/L (20.0-31.0); Calcium 8.8 mg/dL (8.3-10.6); Chloride 108 mmol/L (98-107); Glucose 98 mg/dL (74-106); Potassium 3.9 mmol/L (3.5-5.1); Sodium 140 mmol/L (136-145); Total Protein 7.4 g/dL (5.7-8.2)
[2025-04-03] MEDS: Lidocaine 1% Pres-Free W/EPI 1/200,000 30 ML VIAL IJ (13:52)
[2025-04-03 14:23] VITALS: BP 125/61; PULSE 72; TEMP 37.1; O2SAT 98
--- NOTE | 2025-04-04 16:18 | W.ED.FU ---
Date of service: 04/04/25 Time of Service: 16:18 Follow Up Plan: I attempted to call this patient at home as patient had had a wound culture obtained yesterday. The wound culture was a buttocks abscess and it was growing E. coli. Patient is on clindamycin which has limited gram-negative coverage. I was planning on ordering cefazolin for the patient. I was unable to leave a voicemail for the patient as the patient's voicemail did not identify the patient by name. Will keep the results and the callback queue for now and attempt to call back tomorrow.
--- NOTE | 2025-04-05 07:54 | W.ED.FU ---
Date of service: 04/05/25 Time of Service: 07:54 Follow Up Plan: I called patient to inquire as to how she was feeling. She reported that she was feeling better. Her abscess was growing E. coli for which we will call in a course of cephalexin into her pharmacy. I advised that she should return to the ED if she developed any fevers or worsening pain. She understood her return indications.
== END 2025-04-03 14:23 | disposition home or self-care (01) ==
PROVIDERS: Emergency Provider Registered Nurse Emergency; PCP Nurse Practitioner Family
DX: L02.31 Cutaneous abscess of buttock (principal)
CPT/HCPCS: 10061; 80053; 87040; 87077; 96365; 96375; 99284; 83605; 85025; 87070; 87186; 87205; 99283; J0736; J2004; J2270; J2405

== ENCOUNTER 2025-04-17 10:03 | Emergency (ER) | payer MEDICAID, SELFPAY ==
[2025-04-17 10:06] VITALS: BP 117/70; PULSE 89; RESP 16; TEMP 37.1; O2SAT 97
--- NOTE | 2025-04-17 10:14 | W.ED.GENAD ---
Discharge Plan Disposition Patient Disposition: Home Condition: Stable Discharge Details Clinical Impression: Abscess of left buttock Primary Care Provider: Lisandra Garvey ED Provider: Kenny Prakash Home Meds and New Rx's Prescriptions: New sulfamethoxazole-trimethoprim 800-160 mg tablet 1 tab PO BID 7 Days Qty: 14 0RF lidocaine 4 % gel 1 applic topical BID-QID PRNQty: 10 0RF No Action lisdexamfetamine [Vyvanse] 50 mg capsule 50 mg PO DAILY lamotrigine 100 mg tablet 150 mg PO DAILY Mirena 21 mcg/24 hours (8 yrs) 52 mg intrauterine device 1 device intrauterine ONCE Qty: 1 0RF Rx Instructions: as a single dose fluvoxamine 100 mg tablet 100 mg PO DAILY naproxen 500 mg tablet 500 mg PO BID Qty: 30 0RF Discharge Instructions Instructions: Lidocaine (Topical), Sulfamethoxazole and Trimethoprim, Boil, Adult ED Additional Instructions: You were seen in the emergency department for the recurrent abscess of your left buttock, we performed a needle aspiration we were able to get some packing into the abscess cavity, there was not a copious amount of purulent drainage at this time, please follow-up with your general surgery visit for excision on , I am placing you on an antibiotic called Bactrim, while you are at the pharmacy picking up your prescription you should purchase the soap and Hibiclens to keep in your shower to help decolonize you to prevent recurrent abscesses in the future. Take Tylenol and ibuprofen as needed for pain, I have also sent a prescription for topical lidocaine jelly which you can use to numb the area for discomfort with bodily movements like sitting. You could also perform things like sitz bath's to help possibly prevent further recurrence of these boils. Stand Alone Forms: Portal Information Referrals: [facility] [Provider Group] Lisandra Garvey APRN [Primary Care Provider, Family Practice] Discharge Data Discharge Date/Time-TO BE ENTERED AT DEPARTURE: 04/17/25 11:20 HPI General Date/Time Provider Initiated Documentation: 04/17/25 10:14. HPI Narrative: 19 year-old female presents to ED today by POV/ambulating with a chief complaint of left buttock recurrent abscess with onset over the past few days- had it drained a month ago. Quality described as throbbing exquisitely tender area at left buttock/area, no radiation to fever, active drainage, large red area, constipation. Severity is described as moderate. Palliating factors include nothing specific attempted. Provoking factors include nothing specific. Events leading up to the incident/Associated Symptoms: Patient has surgical consult to excise the area this . Patient not anticoagulated. Related Data Home Medications ?Medication ?Instructions ?Recorded ?Confirmed levonorgestrel (Mirena) 1 device intrauterine ONCE #1 ea 12/07/22 04/17/25 lisdexamfetamine 50 mg capsule 50 mg PO DAILY 07/29/24 04/17/25 (Vyvanse) lamotrigine 100 mg tablet 150 mg PO DAILY 01/06/25 04/17/25 fluvoxamine 100 mg tablet 100 mg PO DAILY 04/02/25 04/17/25 naproxen 500 mg tablet 500 mg PO BID #30 tabs 04/02/25 04/17/25 lidocaine 4 % topical gel 1 applic topical BID-QID PRN #10 04/17/25 grams sulfamethoxazole 800 1 tab PO BID 7 days #14 tabs 04/17/25 mg-trimethoprim 160 mg tablet Previous Rx's ?Medication ?Instructions ?Recorded levonorgestrel (Mirena) 1 device intrauterine ONCE #1 ea 12/07/22 naproxen 500 mg tablet 500 mg PO BID #30 tabs 04/02/25 lidocaine 4 % topical gel 1 applic topical BID-QID PRN #10 04/17/25 grams sulfamethoxazole 800 1 tab PO BID 7 days #14 tabs 04/17/25 mg-trimethoprim 160 mg tablet Allergies Allergy/AdvReac Type Severity Reaction Status Date / Time No Known Drug Allergies Allergy Other (See Verified 04/17/25 10:10 Comment) banana AdvReac Intermediate Other (See Verified 04/17/25 10:10 Comment) pineapple AdvReac Intermediate Other (See Verified 04/17/25 10:10 Comment) General Stated Complaint: RashLesion ALLISON: 4 Review of Systems All systems reviewed & are unremarkable except as noted in HPI and below Exam Narrative Exam Narrative: GENERAL APPEARANCE: Well-nourished, non-toxic, awake and alert, atraumatic, no acute distress. SKIN: Warm, pink, dry, 2.5 x 1 cm area of fluctuant erythema at the left buttock near the gluteal cleft with no active drainage, no diffuse anderson erythema, no lymphadenitis HEAD: Normocephalic, atraumatic, normal hair distribution for gender/age. EYES: Normal conjunctiva, no exudates on lids/lashes. ENT: Nares patent, no circumoral cyanosis, no facial swelling NECK: Supple, trachea midline, painless cervical ROM. LUNGS/CHEST: Non-labored respirations, normal A/P diameter, symmetrical expansion, no chest wall deformity HEART (CV/PV): No peripheral edema, no JVD. ABDOMEN: Soft, non-distended, no guarding. MSK: Normal ROM, no swelling/deformity to bilateral UEs or LEs, moving all extremities without weakness, no cyanosis, spine midline without tenderness, normal curvature. NEURO: Mental Status AAOx4 - alert to person, place, time, events No facial droop, no forehead involvement. Motor: No focal weakness Sensory: sensation intact to light touch globally. Gait normal: patient ambulated without ataxia into ED room. PSYCH: euthymic, cooperative, pleasant, appropriate speech Course Vital Signs Vital signs: Vital Signs Temperature 37.1 C 04/17/25 10:06 Pulse 89 04/17/25 10:06 Respiratory Rate 16 04/17/25 10:06 Blood Pressure 117/70 04/17/25 10:06 Pulse Oximetry 97 04/17/25 10:06 Temperature 37.1 C 04/17/25 10:06 Temperature Source Oral 04/17/25 10:06 Pulse 89 04/17/25 10:06 Respiratory Rate 16 04/17/25 10:06 Blood Pressure 117/70 04/17/25 10:06 Blood Pressure Position Sitting 04/17/25 10:06 Pulse Oximetry 97 04/17/25 10:06 Oxygen Delivery Method Room Air 04/17/25 10:06 Oxygen Flow Rate 0 04/17/25 10:06 Pain Level 1 04/17/25 10:06 Procedure Abscess Drainage Provider that performed the procedure: Kenny Prakash Standard Time Out Performed: No Patient Consented: Verbally Pre Procedure Medication: Other (LET Gel 3 mL) Location of Exam: Buttocks/left side Procedure Description Note: Verbal consent was obtained, and patient was provided with risks and alternatives to the procedure. Wound was copiously cleansed with PCX sponge, and anesthetized with 3 mL of LET gel. Needle aspiration performed with #[id number] needle and 5mL syringe, scant purulent material was drained out. Patient tolerated procedure well, no complications. The wound was then packed with iodoform gauze. Patient advised to look for and return for any signs of infection such as redness, swelling, discharge, or worsening pain. Medical Decision Making This dictation utilizes [id number] dictation software and may contain unedited grammatical errors. 19 year-old female presents to ED today by POV/ambulating with a chief complaint of left buttock recurrent abscess with onset over the past few days- had it drained a month ago. Quality described as throbbing exquisitely tender area at left buttock/area, no radiation to fever, active drainage, large red area, constipation. Severity is described as moderate. Palliating factors include nothing specific attempted. Provoking factors include nothing specific. Events leading up to the incident/Associated Symptoms: Patient has surgical consult to excise the area this . Patients' medical history: Recurrent abscess, history of gram-positive bacteremia, PCOS. Family and social history: Noncontributory. Pertinent exam findings / vital signs include small 2.5 x 1 cm area of fluctuant erythema at the left buttock near the gluteal cleft with no active drainage, no diffuse anderson erythema, no lymphadenitis, stable vitals nontoxic and afebrile. Differential / pathologies of concern include recurrent abscess, mild cellulitis. Diagnostic studies of: - None. Interventions of: - Needle aspiration with 18-gauge needle and some iodoform packing as well as an Rx for Bactrim. ED Course/Assessment/Plan: 19-year-old female presents for recurrent abscess to the left buttock which she got some scant drainage via needle aspiration after let was applied, I did packed the area with iodoform and advise she take out the packing in 48 hours, started on Bactrim and went over ways to decolonize yourself with Hibiclens and showering habits, she has a follow-up with surgery for possible excision on I did not want to excessively incise the area prior to their consult so needle aspiration was performed, recommend topical lidocaine to the area and strict return criteria for any worsening signs of infection. Findings not consistent with fistula, severe cellulitis, sepsis. Disposition of abscess of left buttock. Patient verbalized understanding of the plan and return to ED criteria and engaged in shared decision making. Medical Records Medical records reviewed: Yes I reviewed the patient's medical records. Quality:SDOH Health Related Social Needs: Health related social needs education PFSH All Active Problems (Updated 04/17/25 @ 11:05 by CYNDY Hess) Abscess of left buttock (Acute) Abscess of buttock, left (Acute) IUD strings lost (Acute) Hypothyroidism (Chronic) Gram-positive cocci bacteremia (Acute) Gram-positive bacteremia (Acute) Bacteremia (Acute) Abscess of buttock, left (Acute) Mood disorder (Acute) History of depression (Acute) Insomnia (Chronic) Restless leg (Chronic) Dysmenorrhea (Chronic) doing well on OCP Fatty liver (Chronic) Pre US 07/2021: early onset fatty liver disease Food allergy (Chronic) Banana and Pineapple- vomiting Anxiety (Chronic) reportedly generalized and social anxiety; mixed with depression ADHD (attention deficit hyperactivity disorder), combined type (Chronic) palpitations with Concerta and Focalin XR; tolerating Vyvanse Dry scalp (Acute) PCOS (polycystic ovarian syndrome) (Chronic) Ongoing concern- being followed by weight/wellness clinic and endo clinic at [facility] [place]; Hx of acanthosis nigricans, obesity, dysmenorrhea, hirsutism; sleep study December 2021; referral placed to adult weight and wellness 10/2022 Medical History Nausea Family History Mother Mental disorder depression Asthma Other Diabetes mat great aunt Personal history of malignant neoplasm MGGF-lung Alzheimer disease pat great GF Hyperlipidemia MGF, mat uncle Mental disorder MGF-depression Myocardial infarction mat great GF Hepatitis C PGM Father Hyperlipidemia Social History Smoking/Tobacco Use Status: Never Second Hand Exposure: Yes (Parents, outside only) Smoking risk assessment performed?: Yes Alcohol Intake: never Drug use: Never Substance use type: does not use Adopted: No Caregiver/Support person: No Foster care: No Household members: family Housing: house Number of Children: 0 number of grandchildren: 0 Communication Needs: Corrective Lenses Education Level: college Details: 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 [employer]ature [employer] Cert.- synchronous and asynchronous online 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 [place] Pets and animals: Yes (1 cat, 2 dogs) Pets and animals: cat(s) and dog(s) Do you think of yourself as: lesbian/trevino/homosexual Current gender identity: neither exclusively male nor female What type of physical activity do you participate in: regular exercise Duration: 30-45 minutes/day Frequency: 3-4 times per week Seatbelt use: always Helmet use: Yes Drive intox or ride w/intox ups driver: No Fire extinguisher in home: Yes Carbon monox detector in home: Yes Firearms in home: No History History 0 Para Hx # Term Pregnancies Multiple births Hx # Pregnancies Ectopic pregnancies AB induced Hx Number of Living Children AB spontaneous POCUS Exam (ED) Limited Soft Tissue Exam PROVIDER THAT PERFORMED THE STUDY: Kenny Prakash
[2025-04-17] MEDS: Lidocaine/Epinephri/Tetracaine Topical Gel 3 ML TP (10:26)
[2025-04-17 11:20] VITALS: BP 107/50; PULSE 89; RESP 12; TEMP 37.1; O2SAT 97
== END 2025-04-17 11:20 | disposition home or self-care (01) ==
PROVIDERS: Emergency Provider Physician Assistant; PCP Nurse Practitioner Family
DX: L02.31 Cutaneous abscess of buttock (principal)
CPT/HCPCS: 10160

== ENCOUNTER 2025-04-27 08:36 | Day surgery (SDC) | payer MEDICAID, SELFPAY ==
--- NOTE | 2025-04-26 19:11 | W.ANESPRE ---
General Info Date of Service Date Performed: 04/27/25 Height: 5 ft 6 in Weight: 127.006 kg Body Mass Index (BMI): 45.1 Surgical Procedure: Operation Date: 04/27/25 09:55 Proposed Procedure Side Surgeon p Ano-Rectal Exam Under Anesthesia, Possible Excision and Closure Cristhian Champagne MD Meds Allergies and Home Medications Allergies Allergy/AdvReac Type Severity Reaction Status Date / Time No Known Drug Allergies Allergy Other (See Verified 04/27/25 08:50 Comment) banana AdvReac Intermediate Other (See Verified 04/27/25 08:50 Comment) pineapple AdvReac Intermediate Other (See Verified 04/27/25 08:50 Comment) Home Medication ?Medication ?Instructions ?Recorded levonorgestrel (Mirena) 1 device intrauterine ONCE #1 ea 12/07/22 lisdexamfetamine 50 mg capsule 50 mg PO DAILY 07/29/24 (Vyvanse) lamotrigine 100 mg tablet 150 mg PO DAILY 01/06/25 fluvoxamine 100 mg tablet 100 mg PO DAILY 04/02/25 naproxen 500 mg tablet 500 mg PO BID #30 tabs 04/02/25 lidocaine 4 % topical gel 1 applic topical BID-QID PRN #10 04/17/25 grams Current Visit Medications: Current Medications Generic Name Dose Route Start Last Admin Trade Name Freq PRN Reason Stop Dose Admin Acetaminophen 1,000 mg 04/27/25 06:00 Acetaminophen 500 Mg Tab PO 04/27/25 23:59 PREOP HENRIETTA Celecoxib 200 mg 04/27/25 06:00 Celecoxib 200 Mg Cap PO 04/27/25 23:59 PREOP HENRIETTA Gabapentin 300 mg 04/27/25 06:00 Gabapentin 300 Mg Cap PO 04/27/25 23:59 PREOP HENRIETTA Ringer's Solution 1,000 mls @ 80 mls/hr 04/27/25 06:00 IV 04/27/25 23:59 INFUSION HENRIETTA Cefazolin Sodium/Dextrose 2 gm in 50 mls @ 100 mls/hr 04/27/25 06:00 Ancef Duplex IVPB 04/27/25 23:59 PREOP HENRIETTA Sodium Biphosphate/Sodium Phosphate 133 ml 04/27/25 06:00 Na Phosphate Enema-Adult [address] 04/27/25 23:59 DIRECTED PRN Sodium Chloride 0 ml 04/27/25 06:00 Normal Saline Flush 10 Ml Syr IV 04/27/25 23:59 PRN PRN Sodium Chloride 0 ml 04/27/25 06:00 Normal Saline 10 Ml Vial IJ 04/27/25 23:59 DIRECTED PRN Sterile Water 0 ml 04/27/25 06:00 Water,Injection,Sterile 10 Ml Vial IJ 04/27/25 23:59 DIRECTED PRN PFSH Active Problems Active Problems: Problem Status Onset Code Abscess of left buttock Acute L02.31 Abscess of buttock, left Acute L02.31 IUD strings lost Acute T83.32XA Hypothyroidism Chronic E03.9 Gram-positive cocci bacteremia Acute R78.81 Gram-positive bacteremia Acute R78.81 Bacteremia Acute R78.81 Abscess of buttock, left Acute L02.31 Mood disorder Acute F39 History of depression Acute Z86.59 Insomnia Chronic G47.00 Restless leg Chronic G25.81 Dysmenorrhea Chronic N94.6 Fatty liver Chronic K76.0 Food allergy Chronic Z91.018 Anxiety Chronic F41.9 ADHD (attention deficit hyperactivity disorder), combined type Chronic F90.2 Dry scalp Acute R23.8 PCOS (polycystic ovarian syndrome) Chronic E28.2 Medical History Medical History Nausea Tobacco Smoking/Tobacco Use Status: Never Passive smoking exposure: Yes (Both parents smoke, but usually outside) Second hand exposure: Yes (Parents, outside only) Alcohol Alcohol Intake: never Substance Use Substance use: Never Substance use type: does not use Prental History History 0 Para Hx # Term Pregnancies Multiple births Hx # Pregnancies Ectopic pregnancies AB induced Hx Number of Living Children AB spontaneous Vital Signs and Lab Results Vital Signs Most Recent Vital Signs in EMR: Temp Pulse Resp BP Pulse Ox 36.4 C L 85 14 110/74 96 04/27/25 08:52 04/27/25 08:52 04/27/25 08:52 04/27/25 08:52 04/27/25 08:52 Lab Results Complete Blood Count: WBC, (4.4-10.8) 13.33 10^3/uL H 04/03/25, 12:35 RBC, (3.93-5.22) 4.83 10^6/uL 04/03/25, 12:35 Hgb, (11.2-15.7) 13.8 g/dL 04/03/25, 12:35 Hct, (36.0-46.0) 40.7 % 04/03/25, 12:35 Plt Count, (130-400) 358 10^3/uL 04/03/25, 12:35 VBG Lactate, (<or=2.0) 1.0 mmol/L 04/03/25, 12:35 Complete Metabolic Panel: Sodium, (136-145) 140 mmol/L 04/03/25, 12:35 Potassium, (3.5-5.1) 3.9 mmol/L 04/03/25, 12:35 Chloride, (98-107) 108 mmol/L H 04/03/25, 12:35 Carbon Dioxide, (20.0-31.0) 23.6 mmol/L 04/03/25, 12:35 BUN, (9-23) 8 mg/dL L 04/03/25, 12:35 Creatinine, (0.55-1.02) 0.70 mg/dL 04/03/25, 12:35 Est GFR (CKD-EPI 2020), (mL/min/1.73m2) 105.05 04/03/25, 12:35 Calcium, (8.3-10.6) 8.8 mg/dL 04/03/25, 12:35 Albumin, (3.2-5.0) 4.5 g/dL 04/03/25, 12:35 Glucose, (74-106) 98 mg/dL 04/03/25, 12:35 Liver Function Panel: ALT, (10-49) 27 U/L 04/03/25, 12:35 AST, (<34) 21 U/L 04/03/25, 12:35 Anesthesia Assessment and Plan Anesthesia History Personal History: No History of Anesthesia Complications Family History: No Family History of Anesthesia Complications Exercise Tolerance Exercise Tolerance: Metabolic Equivalents>4 Cardiac & Pulmonary Exam Cardiac Exam: Normal S1/S2 Heart Sounds Pulmonary Exam: Clear Bilateral Breath Sounds Implantable Cardiac Device Does patient have a Pacemaker or an ICD?: No Airway Exam Known Difficult Airway: No Mallampati Class: 1 Mouth Opening: Normal (> 3cm) Thyromental Distance: Greater than 3 cm Neck Range of Motion: Full ROM Neck Circumference: Normal Teeth Condition: Normal Dentition ASA Classification ASA Score: ASA 3 Emergency Case?: No NPO Status NPO Status: NPO Clears >2 hours, Solids >8 hours Status Status: Pt. refuses testing, she was counseled on anesthesia risks Anesthesia Plan Resuscitation Status: Full Code Anesthesia Technique: General Anesthesia Airway Planned: Endotracheal Tube Monitors Used: Standard Monitors Preoperative Comments:: 19 yo for anal exam/fixation. Sig PMHx: fatty liver, hypothyroid, RLS, ADHD, PCOS. ECG: sinus.
--- NOTE | 2025-04-26 19:45 | W.PM.DSUDISC ---
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 Continued lisdexamfetamine [Vyvanse] 50 mg capsule 50 mg PO DAILY lamotrigine 100 mg tablet 150 mg PO DAILY Mirena 21 mcg/24 hours (8 yrs) 52 mg intrauterine device 1 device intrauterine ONCE Qty: 1 0RF Rx Instructions: as a single dose fluvoxamine 100 mg tablet 100 mg PO DAILY naproxen 500 mg tablet 500 mg PO BID Qty: 30 0RF lidocaine 4 % gel 1 applic topical BID-QID PRNQty: 10 0RF Discharge Instructions Additional Instructions: Les, it was good seeing you today, and hopefully this will get you on your way to recovery. The wound on your buttock does not appear to involve any of your anal column or the bottom portion of your rectum. That is very reassuring. However, there is quite a large cavity underlying the small skin wound that you had on your buttock. I suspect this was from the original infection. The antibiotics were probably enough to kill a majority of the bacteria, and as the skin closed over the cavity, this left a potential space that commonly fills up with fluid. This is typically referred to as a seroma. Once the pressure inside the cavity increases sufficiently, that causes the overlying skin to breakdown again, and the fluid to drain out. Today, I made a cruciate incision on the skin, and irrigated all of the underlying cavity clean. There really does not seem to be any sign of active infection at this point. The tricky part will be getting this to heal up. I filled the cavity today with some packing material to help wick out any extra fluid. There are some gauze on top of that. Underneath of the gauze is the wicking material that goes through the incision into the cavity inside your buttock. The top layer of gauze can be changed if needed to keep your skin and clothing dry. Ideally, this wound packing will be changed daily. I have taken the liberty of setting up a follow-up visit in the office for tomorrow for the first packing change. Because of where this is on your body, it would be very helpful if you are able to bring a family member or friend who would be comfortable helping to take care of it. Essentially, we are going to remove that packing material, which looks a little bit like a shoelace, then replace it with some fresh material. This should be done every day, keeping the top layer of skin open, and allowing the fluid to wick out along the packing material. Over time, the wound will require less and less packing as it heals from the base plywood layup line core layer to the skin level. These can take quite some time to heal. But I am relieved that it does not involve any of the sphincter muscles, or the lower anal tissue which would be far more complicated. As I mentioned above, I set you up in the office for tomorrow at 11 AM. I also provided a prescription for a medication called tramadol if you need that for pain. I would also encourage you to use Tylenol and ibuprofen for the next few days. It would probably be helpful to take one of the tramadol pills about half an hour before your visit tomorrow as the first few packing changes can be a bit uncomfortable. Stand Alone Forms: Portal Information Activity:: Activity as Tolerated Remove Dressings/Wound Care:: 24 hours Shower/Bathe:: 24 hours Diet:: As Tolerated Discharge Orders Discharge Orders: Discharge Order (Routine); Ordered 04/26/25 Ordered By: Cristhian Champagne DS: Diagnosis Discharge Diagnosis (1) Abscess of left buttock: Status: Acute Asessment and Plan: Outpatient follow-up tomorrow
--- NOTE | 2025-04-26 19:47 | W.PM.OP ---
Operative Note Operative Note PRE-OP DIAGNOSIS: left buttock abscess POST-OP DIAGNOSIS: other (Left buttock seroma cavity) PROCEDURE: anorectal exam under anesthesia with incision of seroma cavity and packing of wound SURGEON: Cristhian Champagne DIRECTOR OF REHABILITATION AND WELLNESS: Tessa Ny ANESTHESIA TYPE: Local By Surgeon and General LMA/ETT Refer to Anesthesia Record ESTIMATED BLOOD LOSS: 5 PATHOLOGY: none sent COMPLICATIONS: None Patient was transported to: PACU Patient's condition: stable Indications: Salvatore is a 23-year-old patient with a recurrent left buttock abscess Findings: Normal anorectal exam, no evidence of any fistula in ano. Large left buttock seroma cavity Procedure Description: I met with Les in the preoperative area, we reviewed the plan for the surgery today. We then moved back to the operating room. General endotracheal anesthesia was initiated. Les was then rolled into the prone position. Great care was taken to ensure that Salvatore was padded and supported appropriately. The buttocks were gently taped apart for exposure. The buttocks and perianal area were prepped and draped. I performed a digital rectal exam which felt normal. Next, I gently advanced a Hill-Bettencourt retractor into the anal column. The distal rectal vault, and anal column were all normal and healthy. Saw no evidence of any discrete fistulas or any other pathology. I then turned my attention to the wound on the buttock. This was approximately 6 cm from the anal verge. The wound at the skin level was about 0.5 x 0.5 cm. There are some granulation tissue. I cannulated this with a 16-gauge Angiocath, and instilled hydrogen peroxide while directly visualizing the anal column. I saw no evidence of any extravasation of hydrogen peroxide anywhere in the rectal vault or anus. I instilled over 20 cc of peroxide. Next, I remove the angiocatheter from the site, and gently advanced a hemostat into the space. It extended down quite deeply. I then made a small cruciate incision, and gently palpated subcutaneous space. There is an extensive cavity that extends up into the buttock. It is over 8 cm at its deepest point. There were minimal loculations. There is no purulent material. I then extended the cruciate incision for better visualization. Generally, tissue looked pretty healthy. I saw no evidence of any active infection, and the findings seem most consistent with a seroma cavity. I irrigated this extensively with hydrogen peroxide, followed by saline solution. Character of the tissue is healthy, and the granulation tissue was bleeding. With the cavity sufficiently opened, I felt the safest thing to do at this point was just pack it. I think with some manual debridement from packing, as well as the wicking character of the packing material that this will close down over time like a simple abscess cavity. Some fluffed gauze was then applied, Date of Procedure: 04/27/25
[2025-04-27] VITALS (26 sets, daily range): BP systolic 85–159; BP diastolic 36–138; PULSE 61–94; RESP 12–25; TEMP 36.4–36.5; O2SAT 92–100; BMI 45.1
[2025-04-27] MEDS: Na Phosphate Enema-Adult 133 ML BTL PR (09:01)
[2025-04-27] MEDS: Acetaminophen 500 MG TAB 1000 MG PO (09:06)
[2025-04-27] MEDS: Celecoxib 200 MG CAP PO (09:06)
[2025-04-27] MEDS: Gabapentin 300 MG CAP PO (09:06)
[2025-04-27] MEDS: Lactated Ringers 1,000 ML 80 ML IV (09:30)
[2025-04-27] MEDS: Hydrogen Peroxide 3% 480 ML BTL (10:05)
[2025-04-27] MEDS: Bupivacaine 0.25% Pres-Free W/EPI 30 ML VIAL (10:24)
--- NOTE | 2025-04-27 10:43 | W.ANESPOSTOP ---
Postoperative Evaluation Date, Time and Location Date Performed: 04/27/25 Time Performed: 10:44 Patient Location: PACU Vital Signs Most Recent Imported Vital Signs: Most Recent Vital Signs Temp Pulse Resp BP Pulse Ox 36.5 C 91 H 14 97/59 L 98 04/27/25 10:35 04/27/25 10:33 04/27/25 10:33 04/27/25 10:29 04/27/25 10:33 Pain Score Most Recent Pain Score: Most Recent Pain Score Pain Level 0 04/27/25 10:35 Assessment Mental Status: Awake (Alert & Oriented to Patient Baseline) Airway and Respiratory Function: Patent airway with normal (patient baseline) respiratory exam Cardiovascular Function: Hemodynamically Stable Hydration Status: Adequately Hydrated Nausea & Vomiting: No Nausea or Vomiting Pain: Pain is tolerable per patient Peripheral Nerve Block: Patient did not receive a nerve block
[2025-04-27] MEDS: ePHEDrine 25 MG/5 ML Syringe IVP (10:44)
== END 2025-04-27 11:50 | disposition home or self-care (01) ==
LOC: SUR 08:37
PROVIDERS: PCP Nurse Practitioner Family; Visit Provider Surgery
PROC: (CPT 45990; principal; 2025-04-27 09:45)
DX: T79.2XXA Traumatic secondary and recurrent hemorrhage and seroma, initial encounter (principal); X58.XXXA Exposure to other specified factors, initial encounter
CPT/HCPCS: 45990; 10140; J0690; J1100; J2371; J2405; J2704; J3475